=== PATIENT | female | born 1950 | race Caucasian/White ===

== ENCOUNTER → 2018-05-08 08:15 | Outpatient (CLI) | payer OTHER, SELFPAY ==
--- NOTE | 2018-05-08 08:17 | DI.US.S_ITS ---
PROCEDURE: US ABDOMEN COMPLETE INDICATIONS: Persistant diarrhea and abdominal discomfort TECHNIQUE: Real-time scanning was performed of the abdominal and retroperitoneal organs, with image documentation. COMPARISON: None. FINDINGS: Liver: Liver is normal in size and homogeneous in echotexture. Gallbladder: No findings of gallstones or sludge are seen. The gallbladder wall is not thickened, measuring 3 mm or less. No specific pericholecystic fluid is seen. The sonographic Longoria sign is negative. Biliary ducts: Intrahepatic bile ducts are non-dilated. Extrahepatic bile duct caliber measures 6 mm. Normal is 6-7 mm or less in diameter, or 10 mm or less post-cholecystectomy. Pancreas: Visualized portions of the pancreas are sonographically normal. Spleen: Spleen is normal in size and homogeneous in echotexture. Kidneys: Kidneys are normal in size and echotexture. Right kidney measures 9.5 cm long; left kidney measures 9.8 cm long. No hydronephrosis or nephrolithiasis. No solid masses. At the inferior pole of the right kidney, there is a 3.3 cm simple appearing cyst. The renal cortex measures within normal limits for thickness. Aorta: Visualized aorta is normal in caliber at less than 3 cm. Iliacs: Proximal common iliac arteries are normal in caliber at less than 2.5 cm. IVC: Intrahepatic inferior vena cava is patent. Miscellaneous: No free abdominal fluid. IMPRESSION: No significant abnormality is seen. The gallbladder demonstrates a normal sonographic appearance. No biliary dilatation is seen. 3.3 cm simple appearing right renal cyst incidentally noted. Dictated by: Suhail Gonzalez M.D. on 05/08/2018 at 8:58 Approved by: Suhail Gonzalez M.D. on 05/08/2018 at 8:59
[2018-05-08 08:29] LABS: RBC Urine None Seen (0-5/HPF)
[2018-05-08 09:40] LABS: Add Manual Diff / Slide Review NO; Basophils Percent Auto 2.1 % (0-2); Hematocrit 37.5 % (36-46); Hemoglobin 12.7 g/dL (12.0-16.0); Lymphocytes Percent Auto 31.8 % (25-40); Mean Corpuscular HGB Conc 33.9 % (30-36); Mean Corpuscular Hemoglobin 30.3 PG (26-34); Mean Corpuscular Volume 89.6 fL (80-100); Monocytes Percent Auto 7.6 % (3-14); Neutrophils Absolute Auto 2700 /uL (3000-5900); Neutrophils Percent Auto 55.5 % (50-75); Platelet Count 282 X10^3/uL (150-400); Red Blood Cell Count 4.19 X10^6/uL (4.0-5.2); Red Cell Distribution Width 14.7 % (11.6-14.8); White Blood Cell Count 4.9 X10^3/uL (4.5-11.0)
[2018-05-08 09:49] LABS: Bacteria Urine Many (>30); Culture Indicated Urine Specimen Cultured; WBC Urine 5-10/HPF (0-5/HPF)
[2018-05-08 10:17] LABS: Creatinine Urine Random 65.4 mg/dL
[2018-05-08 10:26] LABS: Alanine Aminotransferase 34 IU/L (9-52); Albumin 4.1 g/dL (3.5-5.0); Albumin Globulin Ratio 1.3 (1.0-2.8); Alkaline Phosphatase 66 U/L (38-126); Aspartate Aminotransferase 21 IU/L (14-36); BUN Creatinine Ratio 21.4 (6-22); Bilirubin Total 0.7 mg/dL (0.2-1.3); Blood Urea Nitrogen 15 mg/dL (7-17); Calcium 9.5 mg/dL (8.4-10.2); Carbon Dioxide 28 mmol/L (22-32); Chloride 102 mmol/L (98-107); Cholesterol 313 mg/dL (140-199); Estimated Glomerular Filt Rate > 60.0 mL/min (>60); Globulin 3.2 g/dL (1.7-4.1); Glucose 82 mg/dL (80-110); HDL Cholesterol 52 mg/dL (40-60); HEMOLYSIS < 15 (0-50); LDL Cholesterol Calculated 221 mg/dL (<100); Potassium 4.3 mmol/L (3.4-5.1); Sodium 141 mmol/L (137-145); Total Protein 7.3 g/dL (6.3-8.2); Triglycerides 199 mg/dL (35-150)
[2018-05-08 10:33] LABS: Microalbumi Creatinin Ratio Ur 9.1 ug/mg CR (<30); Microalbumin Urine Random < 0.6 mg/dL (0-1.6)
[2018-05-08 10:46] LABS: Thyroid Stimulating Hormone 1.54 uIU/mL (0.47-4.68)
== END ==
PROVIDERS: PCP Physician Assistant; Visit Provider Physician Assistant
DX: K52.9 Noninfective gastroenteritis and colitis, unspecified (principal); R10.9 Unspecified abdominal pain; N28.1 Cyst of kidney, acquired; E78.5 Hyperlipidemia, unspecified; L50.9 Urticaria, unspecified; Z87.448 Personal history of other diseases of urinary system
CPT/HCPCS: 76700; 80053; 80061; 81015; 82043; 82570; 84443; 85025; 87086; 87186

== ENCOUNTER 2018-05-19 08:23 | Emergency (ER) | payer OTHER, SELFPAY ==
--- NOTE | 2018-05-19 08:26 | ED_ITS ---
HPI - Back Pain/Injury General Chief Complaint: Back Pain/Injury Stated Complaint: SEVERE PAIN IN LOWER BACK ON RIGHT SIDE Time Seen by Provider: 05/19/18 08:25 Source: patient Mode of arrival: ambulatory Limitations: no limitations History of Present Illness HPI Narrative: Otherwise healthy 67-year-old female here for evaluation of right lower back pain. Patient states that she went to bed last night feeling fine. She states that overnight she became uncomfortable with pain in her right lower back that was radiating down her right leg. Has never had anything like this before. She states that this morning she had problems standing and putting pressure on that leg. No urinary symptoms. No bowel symptoms. No fevers. States she does not remember any incident yesterday that could have caused this to happen. She does walk 2-3 miles a day. Does yoga 3 times a week. Related Data Previous Rx's Medication Instructions Recorded desonide 1 ella TOPICAL BID PRN #30 gm 07/15/17 fluocinonide 1 ella TOPICAL BID PRN #30 gm 07/15/17 fexofenadine 180 mg tablet 180 mg PO DAILY #30 tab 04/26/18 ranitidine 150 mg tablet 150 mg PO BID #60 tab 04/26/18 Allergies Allergy/AdvReac Type Severity Reaction Status Date / Time No Known Drug Allergies Allergy Verified 04/26/18 10:58 Review of Systems Constitutional Denies fatigue and Denies fever(s) Cardiovascular Denies chest pain and Denies dyspnea Respiratory Denies dyspnea Gastrointestinal Gastrointestinal: Denies abdominal pain, Denies diarrhea, Denies nausea and Denies vomiting Musculoskeletal Comments: Right lower back pain radiating down her right leg Integumentary/Breasts Denies lesions, Denies rash and Denies wounds Neurologic Comments: Tingling radiating down her right leg Endocrine Denies fatigue Hematologic/Lymphatic Denies easy bleeding and Denies easy bruising [facility] Medical History Essential hypertension (Chronic 07/03/11) Hyperlipidemia (Chronic 07/03/11) Lichen sclerosus et atrophicus (Chronic 12/23/15) Former smoker (Chronic 07/03/11) Tubular adenoma of colon (Resolved 07/18/17) Surgical History History of bilateral salpingo-oophorectomy (BSO) History of tonsillectomy Status post appendectomy Status post breast lumpectomy Family History Father Alcoholic Smoker Mother Alcoholic Osteoporosis CVA (cerebral vascular accident), Onset Age: 40 Social History Smoking Status: Never smoker Exam Initial Vital Signs Initial Vital Signs: Vital Signs Temperature 97.4 F L 05/19/18 08:27 Pulse Rate 83 05/19/18 08:27 Respiratory Rate 20 05/19/18 08:27 Blood Pressure 174/76 H 05/19/18 08:27 Pulse Oximetry 99 05/19/18 08:27 Const General: cooperative, healthy appearing and comfortable Nutritional Appearance: average body habitus Orientation: alert, awake and oriented x3 HENMT Head: normal to inspection and normocephalic GI Inspection: non-distended Palpation: soft, No firm and No guarding Back/Spine/Pelvis Other: Some mild tenderness to palpation over the PSIS and over the SI joint. Skin Lesions: no lesions Rashes: no rashes Neuro Other: Sensation intact to light touch right lower extremity Extrem Other: Full range of motion bilateral lower extremities Course Vital Signs - 8 hr 05/19/18 08:27 Temperature 97.4 F L Pulse Rate 83 Respiratory Rate 20 Blood Pressure 174/76 H Pulse Oximetry 99 MDM - Back Pain/Injury MDM Narrative Medical decision making narrative: Patient states she feels much better and is almost asymptomatic during my examination. She has no red flag symptoms concerning for cauda equina or fractures. Will hold on radiologic studies for now. No signs of skin infections. I suspect that her symptoms last night were musculoskeletal in more specifically muscular since she is almost asymptomatic now. We did discuss the use of nonsteroidal anti-inflammatories. She was given return precautions. She expressed understanding and agreement with plan. Discharge Plan Departure Patient Disposition: Home, Self-Care Clinical Impression: Strain of lumbar region Instructions: Activity May Be Better then Rest for Low Back Pain Recovery Activity Restrictions/Additional Instructions: Recommend that you do the light stretching and staying active like we discussed. Return to the emergency department for any new symptoms, worsening symptoms, fevers, problems with bowel or urination or any other concerning symptoms. Prescriptions: No Action fexofenadine [Ibis Allergy] 180 mg tablet 180 mg PO DAILY Qty: 30 RF: 0 ranitidine HCl [Zantac] 150 mg tablet 150 mg PO BID Qty: 60 RF: 3 fluocinonide 0.05 % ointment 1 ella Topical BID PRNQty: 30 RF: 1 desonide 0.05 % ointment 1 ella Topical BID PRNQty: 30 RF: 1
[2018-05-19 08:27] VITALS: BP 174/76; PULSE 83; RESP 20; TEMP 36.3; O2SAT 99; BMI 32.4
== END 2018-05-19 09:00 | disposition home or self-care (01) ==
PROVIDERS: Emergency Provider Emergency Medicine; PCP Physician Assistant
DX: M62.830 Muscle spasm of back (principal)
CPT/HCPCS: 99282

== ENCOUNTER → 2018-08-14 09:41 | Outpatient (CLI) | payer OTHER, SELFPAY ==
[2018-08-14 09:47] LABS: Bacteria Urine None Seen; WBC Urine None Seen (0-5/HPF)
[2018-08-14 10:01] LABS: Appearance Urine UA CLEAR; Bilirubin Urine UA NEGATIVE (NEGATIVE); Color Urine UA YELLOW; Glucose Urine UA NEGATIVE (Normal); Ketones Urine UA NEGATIVE (NEGATIVE); Leukocyte Esterase Urine UA NEGATIVE (NEGATIVE); Nitrite Urine UA Negative (Negative); Occult Blood Urine UA NEGATIVE (Negative); Protein Urine UA NEGATIVE (Negative); Urobilinogen Urine UA 0.2 E.U./dL (0.2)
[2018-08-14 10:09] LABS: Culture Indicated Urine Cult Not Indicated; RBC Urine 1-5/HPF (0-5/HPF); Squamous Epithelial Cell Urine 5-10 /HPF
== END ==
PROVIDERS: PCP Physician Assistant; Visit Provider Physician Assistant
DX: R32 Unspecified urinary incontinence (principal)
CPT/HCPCS: 81001

== ENCOUNTER → 2019-06-10 08:28 | Outpatient (CLI) | payer OTHER, SELFPAY | PROVIDERS: PCP Physician Assistant; Visit Provider Physician Assistant | DX: H60.91 Unspecified otitis externa, right ear (principal) | CPT/HCPCS: 87070; 87077; 87147; 87186; 87205 ==

== ENCOUNTER → 2019-08-08 09:34 | Outpatient (CLI) | payer OTHER, SELFPAY ==
[2019-08-08 11:00] LABS: HDL Cholesterol 52 mg/dL (40-60); Triglycerides 243 mg/dL (35-150)
[2019-08-08 11:09] LABS: Cholesterol 331 mg/dL (140-199); LDL Cholesterol Calculated 230 mg/dL (<100)
[2019-08-08 11:37] LABS: Alanine Aminotransferase 27 IU/L (9-52); Albumin 4.3 g/dL (3.5-5.0); Albumin Globulin Ratio 1.4 (1.0-2.8); Alkaline Phosphatase 77 U/L (38-126); Aspartate Aminotransferase 26 IU/L (14-36); BUN Creatinine Ratio 21.4 (6-22); Blood Urea Nitrogen 15 mg/dL (7-17); Calcium 9.7 mg/dL (8.4-10.2); Carbon Dioxide 29 mmol/L (22-32); Chloride 101 mmol/L (98-107); Estimated Glomerular Filt Rate > 60.0 mL/min (>60); Globulin 3.1 g/dL (1.7-4.1); Glucose 91 mg/dL (80-110); HEMOLYSIS < 15 (0-50); Potassium 4.4 mmol/L (3.4-5.1); Sodium 140 mmol/L (137-145); Total Protein 7.4 g/dL (6.3-8.2)
== END ==
PROVIDERS: Hospitalist; PCP Physician Assistant; Visit Provider Physician Assistant
DX: E78.5 Hyperlipidemia, unspecified (principal); R19.7 Diarrhea, unspecified
CPT/HCPCS: 36415; 80053; 80061

== ENCOUNTER → 2019-08-11 07:40 | Outpatient (CLI) | payer OTHER, SELFPAY ==
[2019-08-11 11:07] LABS: Clostridium Difficile Tox PCR Negative for C. diff
== END ==
PROVIDERS: PCP Physician Assistant; Visit Provider Hospitalist
DX: R19.7 Diarrhea, unspecified (principal)
CPT/HCPCS: 87045; 87493; 87899

== ENCOUNTER → 2019-09-15 11:19 | Outpatient (CLI) | payer OTHER, SELFPAY ==
[2019-09-15 12:17] LABS: Add Manual Diff / Slide Review NO; Basophils Absolute Auto 100 /uL (0-100); Basophils Percent Auto 0.8 % (0-2); Eosinophils Absolute Auto 300 /uL (0-450); Eosinophils Percent Auto 3.5 % (2-4); Hemoglobin 13.8 g/dL (12.0-16.0); Lymphocytes Absolute Auto 1400 /uL (1100-4500); Lymphocytes Percent Auto 18.7 % (25-40); Mean Corpuscular HGB Conc 33.6 % (30-36); Mean Corpuscular Hemoglobin 30.3 PG (26-34); Mean Corpuscular Volume 90.3 fL (80-100); Monocytes Absolute Auto 500 /uL (0-900); Monocytes Percent Auto 6.8 % (3-14); Neutrophils Absolute Auto 5400 /uL (1500-7000); Neutrophils Percent Auto 70.2 % (50-75); Platelet Count 325 X10^3/uL (150-400); Red Blood Cell Count 4.55 X10^6/uL (4.0-5.2); Red Cell Distribution Width 13.2 % (11.6-14.8); White Blood Cell Count 7.7 X10^3/uL (4.5-11.0)
== END ==
PROVIDERS: PCP Physician Assistant; Visit Provider Physician Assistant
DX: R19.7 Diarrhea, unspecified (principal)
CPT/HCPCS: 36415; 85025

== ENCOUNTER → 2019-12-15 08:42 | Outpatient (CLI) | payer OTHER, SELFPAY ==
[2019-12-15 09:42] LABS: HDL Cholesterol 45 mg/dL (40-60); Triglycerides 245 mg/dL (35-150)
[2019-12-15 09:50] LABS: Cholesterol 330 mg/dL (140-199); LDL Cholesterol Calculated 236 mg/dL (<100)
== END ==
PROVIDERS: PCP Physician Assistant; Visit Provider Physician Assistant
DX: E78.5 Hyperlipidemia, unspecified (principal)
CPT/HCPCS: 36415; 80061

== ENCOUNTER → 2019-12-24 11:39 | Outpatient (CLI) | payer OTHER, SELFPAY ==
--- NOTE | 2019-12-24 11:40 | DI.MG.S_ITS ---
BILATERAL DIGITAL SCREENING MAMMOGRAM 3D/2D WITH CAD: 12/24/2019 CLINICAL: Routine screening. Comparison is made to exams dated: 03/17/2014 mammogram and 11/07/2010 mammogram - [facility]. There are scattered fibroglandular elements in both breasts. Current study was also evaluated with a Computer Aided Detection (CAD) system. No significant masses, calcifications, or other findings are seen in either breast. There has been no significant interval change. IMPRESSION: NEGATIVE There is no mammographic evidence of malignancy. A 1 year screening mammogram is recommended. This exam was interpreted at Station ID: [id number]. NOTE: For mammograms, a report in lay terms will be sent to the patient. Approximately 15% of breast malignancies will not be visualized mammographically. In the management of a palpable breast mass, a negative mammogram must not discourage biopsy of a clinically suspicious lesion. Electronically Signed By: Tracy rodriguez/ian:12/24/2019 19:28:07 letter sent: Normal Exam ACR BI-RADS Category 1: Negative [id number]
== END ==
PROVIDERS: PCP Physician Assistant; Visit Provider Physician Assistant
DX: Z12.31 Encounter for screening mammogram for malignant neoplasm of breast (principal)
CPT/HCPCS: 77063; 77067

== ENCOUNTER → 2020-07-01 09:42 | Outpatient (CLI) | payer OTHER, SELFPAY ==
--- NOTE | 2020-07-01 | DI.US.S_ITS ---
PROCEDURE: US PELVIC COMPLETE INDICATIONS: PAIN TECHNIQUE: Real-time scanning was performed of the pelvic organs, with image documentation. Additional endovaginal scanning was necessary due to incomplete visualization of the adnexal and endometrial structures by transabdominal scanning. COMPARISON: None. FINDINGS: Transabdominal scanning: Limited scanning through the kidneys shows no hydronephrosis. No pathologic free abdominal or pelvic fluid. There is a small amount of myometrial calcification at the fundus, likely a small calcified fibroid. Endovaginal scanning: Uterus: Uterus is normal in size at 2.1 x 3.9 x 4.4 cm, anteverted. The endometrium measures 2.5 mm in combined thickness. Ovaries: The right ovary could not be seen, the left ovary is surgically absent. Note is made of approximately 291 cc bladder volume and the patient reported inability to void. IMPRESSION: No sign of endometrial mass, small amount of uterine fundal calcification within the myometrium, likely a dystrophic uterine small fibroid. Absent left ovary, nonvisualized right ovary due to bowel gas. Bladder volume is approximately 291 cc, and the patient reports inability to void. Please correlate clinically. Dictated by: Angel Street M.D. on 07/01/2020 at 11:13 Approved by: Angel Street M.D. on 07/01/2020 at 11:16
--- NOTE | 2020-07-01 | DI.US.S_ITS ---
PROCEDURE: US ABDOMEN COMPLETE INDICATIONS: Pelvic and perineal pain,Abdominal distension (gas TECHNIQUE: Real-time scanning was performed of the abdominal and retroperitoneal organs, with image documentation. COMPARISON: [facility], US, US ABDOMEN COMPLETE, 05/08/2018, 9:09. FINDINGS: Liver: Liver is normal in size and homogeneous in echotexture. Gallbladder: The gallbladder appears normal Biliary ducts: Intrahepatic bile ducts are non-dilated. Extrahepatic bile duct caliber measures 5.4 mm. Normal is 6-7 mm or less in diameter, or 10 mm or less post-cholecystectomy. Pancreas: Visualized portions of the pancreas are sonographically normal. Spleen: Spleen is normal in size and homogeneous in echotexture. Kidneys: Kidneys are normal in size and echotexture. Right kidney measures 11.0 cm long; left kidney measures 11.3 cm long. No hydronephrosis or nephrolithiasis. No solid masses. There is a right lower pole simple renal cortical cyst measuring up to 3.9 cm. Aorta: Visualized aorta is normal in caliber at less than 3 cm. Iliacs: Proximal common iliac arteries are normal in caliber at less than 2.5 cm. IVC: Intrahepatic inferior vena cava is patent. Miscellaneous: No free abdominal fluid. IMPRESSION: No acute disease. Incidental note is made of a 3.9 cm right renal cortical cyst. No hydronephrosis or nephrolithiasis is associated. No ascites found. Dictated by: Angel Street M.D. on 07/01/2020 at 11:30 Approved by: Angel Street M.D. on 07/01/2020 at 11:32
== END ==
PROVIDERS: PCP Physician Assistant; Referring Provider Physician Assistant; Visit Provider Physician Assistant
DX: R10.2 Pelvic and perineal pain (principal); R14.0 Abdominal distension (gaseous); N28.1 Cyst of kidney, acquired
CPT/HCPCS: 76700; 76830; 76856

== ENCOUNTER → 2020-07-14 10:14 | Outpatient (CLI) | payer OTHER, SELFPAY | PROVIDERS: PCP Physician Assistant; Referring Provider Surgery; Visit Provider Surgery | DX: Z86.010 Personal history of colon polyps (principal); K52.9 Noninfective gastroenteritis and colitis, unspecified | CPT/HCPCS: 87507 ==

== ENCOUNTER → 2020-10-11 10:41 | Outpatient (CLI) | payer OTHER, SELFPAY ==
[2020-10-11 13:22] LABS: COVID19 -Nasal RAPID Negative (Negative)
== END ==
PROVIDERS: PCP Physician Assistant; Visit Provider Surgery
DX: Z11.59 Encounter for screening for other viral diseases (principal)
CPT/HCPCS: 87635; C9803

== ENCOUNTER 2020-10-12 12:41 | Day surgery (SDC) | payer OTHER, SELFPAY ==
[2020-10-12] VITALS (7 sets, daily range): BP systolic 129–181; BP diastolic 75–99; PULSE 71–91; RESP 13–16; TEMP 36.2–36.8; O2SAT 95–97; BMI 29.2
--- NOTE | 2020-10-12 | PATH_ITS ---
[facility] Accession Number: [id number] . 01 Material submitted: . colon - RANDOM COLON BIOPSIES . 02 Diagnosis: Random Colon, Biopsies: Collagenous colitis. Negative for granulomas, dysplasia and malignancy. MRV 10/14/2020 1522 Local . 02 Electronically signed: . Rebekah Biggs MD, Pathologist NPI- [id number] . 01 Gross description: . RANDOM COLON BIOPSIES: Received in formalin are multiple fragment(s) of clayton, soft tissue measuring 1.0 x 0.5 x 0.2 cm in aggregate submitted entirely in 1 cassette(s) /QBJ 10/13/2020 0853 Local . 02 Pathologist provided ICD-10: K52.89 . 02 CPT . 360611 Performed at: 01 [facility] [address] [id number] MD Asher Ahumada MD Phone: [phone] Performed at: 02 [facility] [address] [place], [place] [id number] MD Rebekah Biggs MD Phone: [phone]
[2020-10-12] MEDS: SODIUM CHLORIDE 0.9% 1,000 ML 200 ML IV (13:07)
--- NOTE | 2020-10-12 13:33 | P.HP_ITS ---
History of Present Illness History of Present Illness Date Patient Seen: 10/12/20 Time Patient Seen: 13:33 Chief complaint: [facility] [place] Narrative: This is a 69-year-old woman who is here for colonoscopy due to ongoing diarrhea. To review, the patient reported that her diarrhea began after she had been making some homemade Kombucha in drinking and. She saw her primary doctor initially, and was sent for ?stool studies. On review of her chart a C diff and stool culture were sent in July 2019. I do not see any other stool studies. Saw a knockdown worker at [facility], who recommended a colonoscopy. She says she did not want have a colonoscopy at [facility], and she asked to be referred to [facility]. She says that her diet consists of minimal meet, mostly vegetables, some dairy, some processed food, although this makes her stomach upset she says. She says her diarrhea is daily, and does not include any blood but does include some mucus in the stool. She said she had a bout a 1 month interval where the diarrhea almost completely stopped because she was drinking celery choose every day. She stopped drinking celery juice because she does not like it, and the diarrhea came back. She says she had a colonoscopy about 2 years ago, and another 1 about 2 years before that (looks like the dates were 2016 and 2013). Both times she had a polyp removed from the descending colon. The notes say she is due for repeat colonoscopy 3-5 years from her last 1 which was in 2017. ROS: Diarrhea, reflux symptoms. Thirteen system review is otherwise negative other than as mentioned below and in HPI. PE: GENERAL: Well groomed and cooperative. Appears stated age. Answers questions promptly and appropriately. Vital signs noted. HENT: Normocephalic, atraumatic. Hearing intact. EYES: Conjunctiva pink, sclera white, no periorbital swelling. CARDIOVASCULAR: Regular rate. No pedal edema. RESPIRATORY: Non-tachypneic, breathing comfortably on room air. GASTROINTESTINAL: Abdomen soft and non-distended; rounded, nontender. GENITALURINARY: No flank tenderness. MUSCULOSKELETAL: Equal tone and mass bilaterally. SKIN: Warm, dry, soft, appropriate color for ethnicity. No other lesions, rashes, or wounds. NEURO: Alert and Oriented X 3. No gross sensory deficits, or cognitive issues. PSYCH: Appropriate affect and mood. Patient History Medical History (Updated 10/12/20 @ 13:35 by Rasheeda Tsai MD) Eczema Essential hypertension (07/03/11) Former smoker (07/03/11) Hyperlipidemia (07/03/11) Lichen sclerosus et atrophicus (12/23/15) Osteopenia Spinal stenosis Tubular adenoma of colon (07/18/17) Surgical History History of bilateral salpingo-oophorectomy (BSO) (1967) History of tonsillectomy Hx of colonoscopy with polypectomy (04/2014) Hx of discectomy (03/2017) Status post appendectomy Status post breast lumpectomy (1989) Family & Social History Family History Father Alcoholic Smoker Heart disease Cancer Mother Alcoholic Osteoporosis CVA (cerebral vascular accident) Heart disease Social History: household members none Tobacco & Substance use: Smoking Status Former smoker alcohol intake never alcohol intake frequency a few times a week Substance Use Type does not use Meds Home Medications and Allergies Home Medications Medication Instructions Recorded Confirmed Type desonide 0.05 % topical ointment 1 applictn TOPICAL DAILY #30 gram 12/11/19 10/12/20 Rx Allergies Allergy/AdvReac Type Severity Reaction Status Date / Time No Known Drug Allergies Allergy Verified 07/13/20 10:42 Exam Vital Signs (past 8 hours): - 10/12/20 12:54 Temperature 98 F Pulse Rate 91 H Respiratory Rate 16 Blood Pressure 181/99 H Pulse Oximetry 96 Oxygen Delivery Method Room Air Assessment & Plan Assessment and plan (1) Personal history of colonic polyps: Status: Acute (2) Chronic diarrhea: Status: Acute (3) Change in bowel habits: Status: Acute Assessment & Plan narrative: Risks and benefits of screening colonoscopy and possible polypectomy were discussed with the patient including risk of bleeding, perforation, need for additional procedures, risks of anesthesia. The patient desires to proceed with the colonoscopy procedure. COVID-19 COVID-19 status: Negative Result date/Date tested (Pos, Neg/Pending): 10/11/20 Time Spent With Patient Time with patient: 15-24 minutes Quality VTE Deep Vein Thrombosis/Pulmonary Embolism Present on Admission: No
--- NOTE | 2020-10-12 13:53 | P.HP_ITS ---
History of Present Illness History of Present Illness Chief complaint: [facility] [place] Narrative: This is a 69-year-old woman who is here for colonoscopy due to ongoing diarrhea. To review, the patient reported that her diarrhea began after she had been making some homemade Kombucha in drinking and. She saw her primary doctor initially, and was sent for ?stool studies. On review of her chart a C diff and stool culture were sent in July 2019. I do not see any other stool studies. Saw a occ ther at [facility], who recommended a colonoscopy. She says she did not want have a colonoscopy at [facility], and she asked to be referred to [facility]. She says that her diet consists of minimal meet, mostly vegetables, some dairy, some processed food, although this makes her stomach upset she says. She says her diarrhea is daily, and does not include any blood but does include some mucus in the stool. She said she had a bout a 1 month interval where the diarrhea almost completely stopped because she was drinking celery choose every day. She stopped drinking celery juice because she does not like it, and the diarrhea came back. She says she had a colonoscopy about 2 years ago, and another 1 about 2 years before that (looks like the dates were 2016 and 2013). Both times she had a polyp removed from the descending colon. The notes say she is due for repeat colonoscopy 3-5 years from her last 1 which was in 2017. ROS: Diarrhea, reflux symptoms. Thirteen system review is otherwise negative other than as mentioned below and in HPI. PE: GENERAL: Well groomed and cooperative. Appears stated age. Answers questions promptly and appropriately. Vital signs noted. HENT: Normocephalic, atraumatic. Hearing intact. EYES: Conjunctiva pink, sclera white, no periorbital swelling. CARDIOVASCULAR: Regular rate. No pedal edema. RESPIRATORY: Non-tachypneic, breathing comfortably on room air. GASTROINTESTINAL: Abdomen soft and non-distended; rounded, nontender. GENITALURINARY: No flank tenderness. MUSCULOSKELETAL: Equal tone and mass bilaterally. SKIN: Warm, dry, soft, appropriate color for ethnicity. No other lesions, rashes, or wounds. NEURO: Alert and Oriented X 3. No gross sensory deficits, or cognitive issues. PSYCH: Appropriate affect and mood. Patient History Medical History Eczema Essential hypertension (07/03/11) Former smoker (07/03/11) Hyperlipidemia (07/03/11) Lichen sclerosus et atrophicus (12/23/15) Osteopenia Spinal stenosis Tubular adenoma of colon (07/18/17) Surgical History History of bilateral salpingo-oophorectomy (BSO) (1967) History of tonsillectomy Hx of colonoscopy with polypectomy (04/2014) Hx of discectomy (03/2017) Status post appendectomy Status post breast lumpectomy (1989) Family & Social History Family History Father Alcoholic Smoker Heart disease Cancer Mother Alcoholic Osteoporosis CVA (cerebral vascular accident) Heart disease Social History: household members none Tobacco & Substance use: Smoking Status Former smoker alcohol intake never alcohol intake frequency a few times a week Substance Use Type does not use Meds Home Medications and Allergies Home Medications Medication Instructions Recorded Confirmed Type desonide 0.05 % topical ointment 1 applictn TOPICAL DAILY #30 gram 12/11/19 10/12/20 Rx Allergies Allergy/AdvReac Type Severity Reaction Status Date / Time No Known Drug Allergies Allergy Verified 07/13/20 10:42 Exam Vital Signs (past 8 hours): - 10/12/20 12:54 Temperature 98 F Pulse Rate 91 H Respiratory Rate 16 Blood Pressure 181/99 H Pulse Oximetry 96 Oxygen Delivery Method Room Air Assessment & Plan COVID-19 COVID-19 status: Negative Result date/Date tested (Pos, Neg/Pending): 10/11/20 Time Spent With Patient Time with patient: 15-24 minutes Quality VTE Deep Vein Thrombosis/Pulmonary Embolism Present on Admission: No
--- NOTE | 2020-10-12 14:02 | P.OP.ENDO_ITS ---
Operative Date/Time/Diagnoses Date of procedure: 10/12/20 Time of procedure: 14:02 Pre-op diagnosis: Chronic diarrhea Procedure & Clinicians Study performed: Colonoscopy Procedural sedation performed by the endoscopist Random biopsies throughout the colon to rule out microscopic colitis Same procedure as scheduled: Yes Indications: 69-year-old woman with change in bowel habits Surgeon: Rasheeda Tsai Procedure Notes SCOAP/Timeout: Performed Procedure in detail: The patient was brought to the room and placed in left lateral decubitus position with all bony prominences padded. A time-out was performed and then the patient was given procedural sedation starting with mg of Versed and [10 mcg of fentanyl. Vitals were monitored throughout the procedure and remained stable. Once adequately sedated, the procedure was begun. A rectal exam was performed revealing [no abnormalitie. The colonoscope was then introduced to the rectum and advanced to the cecum in the usual fashion. [The cecum was identified by the appendiceal orifice, the mucosal tri- fold, and the ileocecal valve. The scope was then retracted while rotating side to side and examining each mucosal fold. No visible abnormalities were seen of the rectal or colonic mucosa. Random biopsies were taken throughout the ascending, transverse, descending, and sigmoid colon and the rectum. At the conclusion of the procedure retroflexion was performed and [small grade 1-2 in ternal hemorrhoids without stigmata of bleeding were seen. The scope was then withdrawn from the rectum the procedure was concluded. The patient tolerated the procedure well and was transferred to the PACU in stable condition. Scope withdrawal time: 10 Sedation minutes: 22 Impression: Normal appearing colon Post-procedure Recommendations: Colonscopy in 5 years (For personal history of colon polyps) and Other recommendation (Will contact patient with biopsy results) Follow up: as needed Disposition: PACU
[2020-10-12] MEDS: MIDAZOLAM 5 MG/5 ML VIAL IV (14:06)
[2020-10-12] MEDS: fentaNYL 250 MCG/5 ML INJ IV (14:06)
--- NOTE | 2020-10-12 14:50 | SUR.PHASEI ---
awake and comfortable, instructions reviewed, pt drinking coffee. Denies light headedness
--- NOTE | 2020-10-12 15:19 | SUR.PHASEII ---
Stable phase 2, pt left when ready and left in stable condition.
== END 2020-10-12 15:10 | disposition home or self-care (01) ==
PROVIDERS: PCP Physician Assistant; Referring Provider Physician Assistant; Visit Provider Surgery
PROC: 0DJD8ZZ Inspection of Lower Intestinal Tract, Via Natural or Artificial Opening Endoscopic (ICD-10-PCS; CPT 45378; principal; 2020-10-12 13:45)
DX: K52.831 Collagenous colitis (principal); K64.0 First degree hemorrhoids; I10 Essential (primary) hypertension; E78.5 Hyperlipidemia, unspecified; Z87.891 Personal history of nicotine dependence
CPT/HCPCS: 45380; 99152; J2250; J3010

== ENCOUNTER → 2021-03-08 09:52 | Outpatient (CLI) | payer OTHER, SELFPAY ==
[2021-03-08 11:15] LABS: Add Manual Diff / Slide Review NO; Basophils Absolute Auto 100 /uL (0-100); Basophils Percent Auto 1.4 % (0-2); Eosinophils Absolute Auto 100 /uL (0-450); Eosinophils Percent Auto 2.6 % (2-4); Hematocrit 40.5 % (36-46); Hemoglobin 13.9 g/dL (12.0-16.0); Lymphocytes Absolute Auto 1400 /uL (1100-4500); Lymphocytes Percent Auto 25.6 % (25-40); Mean Corpuscular HGB Conc 34.3 % (30-36); Mean Corpuscular Hemoglobin 31.6 PG (26-34); Mean Corpuscular Volume 92.1 fL (80-100); Monocytes Absolute Auto 400 /uL (0-900); Monocytes Percent Auto 6.6 % (3-14); Neutrophils Absolute Auto 3500 /uL (1500-7000); Neutrophils Percent Auto 63.8 % (50-75); Platelet Count 295 X10^3/uL (150-400); Red Cell Distribution Width 14.8 % (11.6-14.8); White Blood Cell Count 5.5 X10^3/uL (4.5-11.0)
[2021-03-08 11:50] LABS: HEMOLYSIS < 15 (0-50); Iron 55 ug/dL (37-170)
[2021-03-08 11:52] LABS: Alanine Aminotransferase 17 IU/L (<35); Albumin 4.3 g/dL (3.5-5.0); Albumin Globulin Ratio 1.3 (1.0-2.8); Alkaline Phosphatase 51 U/L (38-126); Aspartate Aminotransferase 15 IU/L (14-36); Bilirubin Total 0.4 mg/dL (0.2-1.3); Blood Urea Nitrogen 17 mg/dL (7-17); Calcium 10.6 mg/dL (8.4-10.2); Carbon Dioxide 28 mmol/L (22-32); Chloride 104 mmol/L (98-107); Estimated Glomerular Filt Rate > 60.0 mL/min (>60); Globulin 3.3 g/dL (1.7-4.1); Glucose 93 mg/dL (80-110); HEMOLYSIS < 15 (0-50); Potassium 4.6 mmol/L (3.4-5.1); Sodium 139 mmol/L (137-145); Total Protein 7.6 g/dL (6.3-8.2)
[2021-03-08 12:02] LABS: Percent Iron Saturation 24 % (15-50); Total Iron Binding Capacity 231 ug/dL (265-497); Transferrin 212 mg/dL (206-381)
[2021-03-08 12:27] LABS: Ferritin 44 ng/mL (11-264)
[2021-03-08 12:42] LABS: Vitamin B12 473 pg/mL (239-931)
[2021-03-08 16:07] LABS: Creatinine Urine Random 71.6 mg/dL
[2021-03-08 16:13] LABS: Microalbumin Urine Random < 0.6 mg/dL (0-1.6)
[2021-03-08 16:23] LABS: Vitamin D 25 Hydroxy (D3) 55.8 ng/mL (30.0-100.0)
[2021-03-09 05:31] LABS: Cholesterol HDL Ratio 5.6 ratio (0.0-4.4); Cholesterol,Total 379 mg/dL (100-199); HDL Cholesterol 68 mg/dL (>39); LDL Cholesterol Cal 288 mg/dL (0-99); Triglycerides 129 mg/dL (0-149); VLDL Cholesterol Cal 23 mg/dL (5-40)
== END ==
PROVIDERS: PCP Physician Assistant; Referring Provider Physician Assistant; Visit Provider Physician Assistant
DX: E11.9 Type 2 diabetes mellitus without complications (principal); Z13.0 Encounter for screening for diseases of the blood and blood-forming organs and certain disorders involving the immune mechanism; R03.0 Elevated blood-pressure reading, without diagnosis of hypertension; E78.5 Hyperlipidemia, unspecified; K52.9 Noninfective gastroenteritis and colitis, unspecified; E63.9 Nutritional deficiency, unspecified; E78.2 Mixed hyperlipidemia; E11.8 Type 2 diabetes mellitus with unspecified complications; I10 Essential (primary) hypertension
CPT/HCPCS: 36415; 80053; 80061; 82043; 82306; 82570; 82607; 82728; 83540; 83550; 85025

== ENCOUNTER → 2021-05-13 14:43 | Outpatient (CLI) | payer OTHER, SELFPAY ==
[2021-05-13 15:44] LABS: Influenza A - CEPHEID Flu A NEGATIVE (NEGATIVE); Influenza B - CEPHEID Flu B NEGATIVE (NEGATIVE)
[2021-05-13 15:59] LABS: COVID19 -Nasal RAPID Negative (Negative)
== END ==
PROVIDERS: PCP Physician Assistant; Visit Provider Physician Assistant
DX: R11.0 Nausea (principal); R50.9 Fever, unspecified; R52 Pain, unspecified
CPT/HCPCS: 87502; 87635; 93010

== ENCOUNTER 2021-05-13 15:43 | Emergency (ER) | payer OTHER, SELFPAY ==
[2021-05-13] VITALS (14 sets, daily range): BP systolic 132–162; BP diastolic 65–78; PULSE 85–96; RESP 18–32; TEMP 37.6; O2SAT 96–99; BMI 25.7
--- NOTE | 2021-05-13 15:45 | DI.RAD.S_ITS ---
PROCEDURE: XR CHEST 1V INDICATIONS: suspected sepsis TECHNIQUE: One view of the chest was acquired. COMPARISON: None. FINDINGS: Surgical changes and devices: Fusion hardware in mid to lower cervical spine is seen. Lungs and pleura: Lungs are clear. No pleural effusions or pneumothorax. Mediastinum: Mediastinal contours appear normal. Heart size is normal. Bones and chest wall: No suspicious bony lesions. Overlying soft tissues appear unremarkable. IMPRESSION: No acute cardiopulmonary pathology. Dictated by: Rl Law M.D. on 05/13/2021 at 16:28 Approved by: Rl Law M.D. on 05/13/2021 at 16:28
[2021-05-13 16:13] LABS: Add Manual Diff / Slide Review NO; Basophils Absolute Auto 100 /uL (0-100); Basophils Percent Auto 0.8 % (0-2); Eosinophils Absolute Auto 0 /uL (0-450); Eosinophils Percent Auto 0.3 % (2-4); Hematocrit 35.7 % (36-46); Hemoglobin 11.9 g/dL (12.0-16.0); Lymphocytes Absolute Auto 1100 /uL (1100-4500); Lymphocytes Percent Auto 12.3 % (25-40); Mean Corpuscular HGB Conc 33.2 % (30-36); Mean Corpuscular Hemoglobin 30.4 PG (26-34); Mean Corpuscular Volume 91.4 fL (80-100); Monocytes Absolute Auto 1100 /uL (0-900); Monocytes Percent Auto 12.4 % (3-14); Neutrophils Absolute Auto 6900 /uL (1500-7000); Neutrophils Percent Auto 74.2 % (50-75); Platelet Count 195 X10^3/uL (150-400); Red Cell Distribution Width 13.9 % (11.6-14.8); White Blood Cell Count 9.3 X10^3/uL (4.5-11.0)
[2021-05-13] MEDS: SODIUM CHLORIDE 0.9% 1,000 ML 1000 ML IV (16:14)
[2021-05-13 16:24] LABS: Alanine Aminotransferase 60 IU/L (<35); Albumin 3.6 g/dL (3.5-5.0); Albumin Globulin Ratio 0.9 (1.0-2.8); Alkaline Phosphatase 152 U/L (38-126); Aspartate Aminotransferase 63 IU/L (14-36); BUN Creatinine Ratio 22.1 (6-22); Bilirubin Total 0.7 mg/dL (0.2-1.3); Blood Urea Nitrogen 23 mg/dL (7-17); Calcium 9.5 mg/dL (8.4-10.2); Carbon Dioxide 19 mmol/L (22-32); Chloride 99 mmol/L (98-107); Estimated Glomerular Filt Rate 52.4 mL/min (>60); Globulin 3.8 g/dL (1.7-4.1); Glucose 114 mg/dL (80-110); HEMOLYSIS < 15 (0-50); Lactate (Lactic Acid) 0.8 mmol/L (0.7-2.1); Lipase 73 U/L (23-300); Potassium 3.5 mmol/L (3.4-5.1); Sodium 129 mmol/L (137-145); Total Protein 7.4 g/dL (6.3-8.2)
[2021-05-13 16:41] LABS: Procalcitonin 5.75 ng/mL (<0.5)
--- NOTE | 2021-05-13 17:15 | ED_ITS ---
HPI - General Adult General Chief complaint: Fever Stated complaint: Flu Like Symptoms Time Seen by Provider: 05/13/21 15:49 Source: patient Mode of arrival: Family Vehicle Limitations: no limitations History of Present Illness HPI narrative: 70-year-old woman with history of hypertension and the lichen sclerosis presents with reports of being sick for a week. She describes chills for number of days, significantly decreased appetite, sleeping up to 20 hours a day, hot flashes with body aches and taking Tylenol up to every 3 hours. She notes that her memory and cognition seem to be a bit off. She notes that her chronic low back and hip pain have been bothering her more due to the amount of time she has been spending bed. She complains of urinary symptoms consisting of urgency and an unpleasant odor. She does not note suprapubic or flank pain. She has a mild dry cough, no chest pain, no dyspnea, no tachypnea, nausea, vomiting, diarrhea or other abdominal pain. She describes no rashes and no re cent sick exposures. Related Data Previous Rx's Medication Instructions Recorded desonide 0.05 % topical ointment 1 applictn TOPICAL DAILY #30 gram 12/11/19 Allergies Allergy/AdvReac Type Severity Reaction Status Date / Time No Known Drug Allergies Allergy Verified 05/13/21 14:25 Review of Systems Review of Systems Narrative: Remainder of complete review of systems is otherwise unremarkable except for that included in the HPI. Patient History Medical History Eczema Essential hypertension (07/03/11) Former smoker (07/03/11) Hyperlipidemia (07/03/11) Lichen sclerosus et atrophicus (12/23/15) Osteopenia Spinal stenosis Tubular adenoma of colon (07/18/17) Surgical History History of bilateral salpingo-oophorectomy (BSO) (1967) History of tonsillectomy Hx of colonoscopy with polypectomy (04/2014) Hx of discectomy (03/2017) Status post appendectomy Status post breast lumpectomy (1989) Family History Father Alcoholic Smoker Heart disease Cancer Mother Alcoholic Osteoporosis CVA (cerebral vascular accident) Heart disease Social History marital status: unknown household members: none Smoking Status: Former smoker Tobacco: How many years used: 40 second hand exposure: Yes alcohol intake: never substance use type: does not use Smoking Status: Former smoker tobacco type: cigarettes alcohol intake frequency: a few times a week Substance Use Type: does not use Exam Narrative Exam Narrative: General: mildly ill-appearing slightly flushed but, in no acute distress. Able to give a complete and coherent history. Well-nourished well-developed HEENT: Moist mucous membranes, normal sclera with reactive pupils, Neck: No JVD, supple Respiratory: Lungs are clear to auscultation, no wheezing no rales no rhonchi. Full and symmetrical air movement Cardiac: Regular rate and rhythm no murmurs no bruits Abdomen: Soft, nontender, good bowel tones, no flank pain Skin: Warm and dry, no rashes Neurologic: slight cognitive slowing but overall, Grossly neurologically intact with no obvious asymmetries or abnormalities Extremities: No trauma, well perfused Psych: Cooperative, appropriate insight and affect Initial Vital Signs Initial Vital Signs: Vital Signs Blood Pressure 158/77 H 05/13/21 15:52 Course Orders Ordered: ED Orders 05/13/21 15:45 XR chest 1V Stat EKG-12 Lead Stat RT Consult Eval and Treat Now 05/13/21 15:46 Urinalysis and Microscopic Stat 05/13/21 16:00 Complete Blood Count AUTO DIFF Stat Comprehensive Metabolic Panel Stat Lactate (Lactic Acid) Stat Lipase Stat Procalcitonin Stat 05/13/21 16:15 Blood Culture Stat Discontinued Medications Atenolol (Atenolol 50 Mg Tablet) 50 mg PO NOW ONE Stop: 05/13/21 17:22 Last Admin: 05/13/21 17:28 Dose: Not Given Documented by: Sodium Chloride (Normal Saline 0.9%) 1,000 mls @ 1,000 mls/hr IV BOLUS ONE Stop: 05/13/21 16:44 Last Admin: 05/13/21 16:14 Dose: 1,000 mls/hr Documented by: ATAYLOR Ceftriaxone Sodium 2,000 mg/ (Sodium Chloride) 100 mls @ 200 mls/hr IV NOW ONE Stop: 05/13/21 17:40 Last Admin: 05/13/21 17:52 Dose: 200 mls/hr Documented by: Vital Signs Vital signs: Vital Signs - 8 hr 05/13/21 15:52 05/13/21 16:00 05/13/21 16:01 Temperature 99.7 F H Pulse Rate 92 H 92 H Respiratory Rate 23 24 Blood Pressure 158/77 H 147/70 H 147/70 H Pulse Oximetry 98 97 05/13/21 16:15 05/13/21 16:30 05/13/21 16:45 Temperature Pulse Rate 90 90 88 Respiratory Rate 26 H 23 21 Blood Pressure 138/72 Pulse Oximetry 97 96 96 05/13/21 17:00 05/13/21 17:15 Temperature Pulse Rate 90 88 Respiratory Rate 23 21 Blood Pressure 132/65 Pulse Oximetry 99 97 Medical Decision Making Medical Records Medical records reviewed: Yes I reviewed the patient's medical records. Lab Data Lab results reviewed: Yes I reviewed the patient's lab results. Result diagrams: 05/13/21 16:00 05/13/21 16:00 Labs: Lab Results 05/13/21 05/13/21 05/13/21 Range/Units 16:00 16:00 16:00 WBC 9.3 (4.5-11.0) X10^3/uL RBC 3.90 L (4.0-5.2) X10^6/uL Hgb 11.9 L (12.0-16.0) g/dL Hct 35.7 L (36-46) % MCV 91.4 (80-100) fL MCH 30.4 (26-34) PG MCHC 33.2 (30-36) % RDW 13.9 (11.6-14.8) % Plt Count 195 (150-400) X10^3/uL Neut % (Auto) 74.2 (50-75) % Lymph % (Auto) 12.3 L (25-40) % [place] % (Auto) 12.4 (3-14) % Eos % (Auto) 0.3 L (2-4) % Baso % (Auto) 0.8 (0-2) % Neut # (Auto) 6900 (2553-0152) /uL Lymph # (Auto) 1100 (8967-0802) /uL [place] # (Auto) 1100 H (0-900) /uL Eos # (Auto) 0 (0-450) /uL Baso # (Auto) 100 (0-100) /uL Sodium 129 L (137-145) mmol/L Potassium 3.5 (3.4-5.1) mmol/L Chloride 99 (98-107) mmol/L Carbon Dioxide 19 L (22-32) mmol/L BUN 23 H (7-17) mg/dL Creatinine 1.04 (0.52-1.04) mg/dL Estimated GFR 52.4 L (>60) mL/min BUN/Creatinine Ratio 22.1 H (6-22) Glucose 114 H (80-110) mg/dL Lactate 0.8 (0.7-2.1) mmol/L Calcium 9.5 (8.4-10.2) mg/dL Total Bilirubin 0.7 (0.2-1.3) mg/dL AST 63 H (14-36) IU/L ALT 60 H (<35) IU/L Alkaline Phosphatase 152 H (38-126) U/L Total Protein 7.4 (6.3-8.2) g/dL Albumin 3.6 (3.5-5.0) g/dL Globulin 3.8 (1.7-4.1) g/dL Albumin/Globulin Ratio 0.9 L (1.0-2.8) Lipase 73 (23-300) U/L Procalcitonin 5.75 H (<0.5) ng/mL ECG Data Attestation: I personally reviewed and interpreted this ECG as follows: Interpretation: FINDINGS: Surgical changes and devices: Fusion hardware in mid to lower cervical spine is seen. Lungs and pleura: Lungs are clear. No pleural effusions or pneumothorax. Mediastinum: Mediastinal contours appear normal. Heart size is normal. Bones and chest wall: No suspicious bony lesions. Overlying soft tissues appear unremarkable. IMPRESSION: No acute cardiopulmonary pathology. Dictated by: Rl Law M.D. on 05/13/2021 at 16:28 MDM Narrative Medical decision making narrative: review 70-year-old woman with a week of fevers, chills, general malaise, decreased appetite and a urinary symptoms. She is hyponatremic with a sodium of 129, has no overt signs of sepsis with a normal white blood cell count normal lactic acid. Her chest x-ray is unremarkable. Urinalysis does suggest of bladder infection and she started on ceftriaxone in the emergency department. Because of the severity of her describes symptoms go ing on for a week and not improving as well as hyponatremia admission was recommended. She has declined this and has agreed to sign an Against Medical Advice form and will be going home. We discussed the importance of free water restriction given her low sodium level. also discussed the cognitive changes that we typically see 1 sodium levels are low. She is given ceftriaxone in the emergency department and will be discharged home on cephalexin. She does have a urine culture from 2018 that shows a pansensitive E coli. Encouraged her to return to the emergency department should she have any worsening symptoms Discharge Plan Departure Prescriptions: No Action desonide 0.05 % ointment 1 applictn topical DAILY Qty: 30 RF: 3
[2021-05-13] MEDS: cefTRIAXone 2,000 MG in SODIUM CHLORIDE 0.9% 100 ML 200 ML IV (17:52)
[2021-05-13 18:10] LABS: Appearance Urine UA CLEAR; Bilirubin Urine UA 1+ (NEGATIVE); Color Urine UA YELLOW; Glucose Urine UA NEGATIVE (Negative); Ketones Urine UA TRACE (NEGATIVE); Leukocyte Esterase Urine UA 3+ (NEGATIVE); Nitrite Urine UA POSITIVE (Negative); Occult Blood Urine UA 2+ (Negative); Protein Urine UA TRACE (Negative); Specific Gravity Urine UA <=1.005 (1.000-1.035); Urobilinogen Urine UA 0.2 E.U./dL (0.2)
[2021-05-13 18:32] LABS: RBC Urine 5-10/HPF (0-5/HPF); Renal Epithelial Cells Urine 0-1/HPF (0-1/HPF); Squamous Epithelial Cell Urine 1-5 /HPF (0-5/HPF); Transitional Epi Cells Urine 0-1/HPF (0-5/HPF); WBC Urine 30-100/HPF (0-5/HPF)
[2021-05-13 18:33] LABS: Bacteria Urine Many (>30); Culture Indicated Urine Specimen Cultured
[2021-05-13 18:35] LABS: Ictotest Urine Negative (Negative)
[2021-05-14 07:15] LABS: Enterococcus species Not Detected (Not Detect)
[2021-05-14 07:16] LABS: Acinetobacter baumannii Not Detected (Not Detect); Candida albicans Not Detected (Not Detect); Candida glabrata Not Detected (Not Detect); Candida krusei Not Detected (Not Detect); Candida parapsilosis Not Detected (Not Detect); Candida tropicalis Not Detected (Not Detect); E. coli Detected (Not Detect); Enterobacter cloacae complex Not Detected (Not Detect); Enterobacteriaceae species Detected (Not Detect); Haemophilus influenzae Not Detected (Not Detect); KPC (carbapenem-resist gene) Not Detected (Not Detect); Listeria monocytogenes Not Detected (Not Detect); Neisseria meningitidis Not Detected (Not Detect); Proteus species Not Detected (Not Detect); Pseudomonas aeruginosa Not Detected (Not Detect); Serratia marcescens Not Detected (Not Detect); Staphylococcus species Not Detected (Not Detect); Streptococcus agalactiae (Gr B Not Detected (Not Detect); Streptococcus pneumonia Not Detected (Not Detect); Streptococcus pyogenes (Gr A) Not Detected (Not Detect); Streptococcus species Not Detected (Not Detect)
== END 2021-05-13 19:10 | disposition left against medical advice (07) ==
PROVIDERS: Emergency Provider Emergency Medicine; PCP Physician Assistant
DX: R50.9 Fever, unspecified (principal); R53.83 Other fatigue; E87.1 Hypo-osmolality and hyponatremia; N39.0 Urinary tract infection, site not specified
CPT/HCPCS: 36415; 71045; 80053; 81001; 83605; 83690; 84145; 85025; 87040; 87077; 87086; 87150; 87186; 87205; 93005; 99284; J0696

== ENCOUNTER 2021-05-14 16:21 | Observation (INO) | payer OTHER, SELFPAY ==
[2021-05-14] VITALS (15 sets, daily range): BP systolic 107–150; BP diastolic 59–89; PULSE 77–90; RESP 10–31; TEMP 36.4–37.2; O2SAT 90–100; BMI 25.7; BMI 26.9
--- NOTE | 2021-05-14 16:32 | ED_ITS ---
HPI - General Adult General Chief complaint: Fever Stated complaint: positive blood cultures, low sodium Time Seen by Provider: 05/14/21 16:36 History of Present Illness HPI narrative: Woman who was seen yesterday in the emergency room with complaints of ?being sick all week?. She was noted to be hyponatremic, appeared acutely ill and had signs of urinary tract infection. She was treated with ceftriaxone in the emergency department. Urine culture from 3 years previously had shown a pansensitive E coli so she was discharged home with Keflex when she declined hospital admission at that time. 4/4 Blood cultures returned positive for E coli in less than 24 hours. Patient was contacted and stated that she was not feeling significantly better. She was continuing to have the downward pressure in her bladder(she denies overt dysuria) and she has not noted dizziness when she stands up nor bilateral flank pain. She describes no dyspnea, vomiting, diarrhea. She notes that she has been having fevers and chills today feels that her cognitive function is not as crisp as it usually is in generally continues to feel unwell. We requested that she return to the emergency department with anticipation of IV antibiotics and hospitalization. Related Data Previous Rx's Medication Instructions Recorded desonide 0.05 % topical ointment 1 applictn TOPICAL DAILY #30 gram 12/11/19 cephalexin 500 mg PO TID #21 cap 05/13/21 Allergies Allergy/AdvReac Type Severity Reaction Status Date / Time No Known Drug Allergies Allergy Verified 05/13/21 14:25 Review of Systems Review of Systems Narrative: Remainder of complete review of systems is otherwise unremarkable except for that included in the HPI. Patient History Medical History Eczema Essential hypertension (07/03/11) Former smoker (07/03/11) Hyperlipidemia (07/03/11) Lichen sclerosus et atrophicus (12/23/15) Osteopenia Spinal stenosis Tubular adenoma of colon (07/18/17) Surgical History History of bilateral salpingo-oophorectomy (BSO) (1967) History of tonsillectomy Hx of colonoscopy with polypectomy (04/2014) Hx of discectomy (03/2017) Status post appendectomy Status post breast lumpectomy (1989) Family History Father Alcoholic Smoker Heart disease Cancer Mother Alcoholic Osteoporosis CVA (cerebral vascular accident) Heart disease Social History marital status: unknown household members: none Smoking Status: Former smoker Tobacco: How many years used: 40 second hand exposure: Yes alcohol intake: current substance use type: does not use Smoking Status: Former smoker tobacco type: cigarettes alcohol intake frequency: a few times a week Substance Use Type: does not use Exam Narrative Exam Narrative: General: Mildly fatigued appearing but in no acute distress. Able to give a complete and coherent history. Well-nourished well-developed HEENT: Moist mucous membranes, normal sclera with reactive pupils, Neck: No JVD, supple Respiratory: Lungs are clear to auscultation, no wheezing no rales no rhonchi. Full and symmetrical air movement Cardiac: Mild tachycardia but otherwise regular rate and rhythm no murmurs no bruits Abdomen: Soft, nontender, good bowel tones, no flank pain Skin: Warm and dry, no rashes Neurologic: Complains of feeling cognitively slowed but otherwise Grossly n eurologically intact with no obvious asymmetries or abnormalities Extremities: No trauma, well perfused Psych: Cooperative, appropriate insight and affect Initial Vital Signs Initial Vital Signs: Vital Signs Temperature 97.5 F L 05/14/21 16:32 Pulse Rate 80 05/14/21 16:32 Respiratory Rate 19 05/14/21 16:32 Blood Pressure 139/89 05/14/21 16:32 Pulse Oximetry 98 05/14/21 16:32 Course Orders Ordered: ED Orders 05/14/21 16:34 XR chest 1V Stat 05/14/21 16:45 Blood Culture Stat COVID19 - ADMIT ([employer] swab/PCR) Stat 05/14/21 16:55 Complete Blood Count AUTO DIFF Stat Comprehensive Metabolic Panel Stat Lactate (Lactic Acid) Stat Lipase Stat Magnesium Stat Troponin I Stat 05/14/21 18:30 Education, smoking cessation ONGOING 05/14/21 19:00 Lactate (Lactic Acid) Stat 05/15/21 05:00 Basic Metabolic Panel Routine Complete Blood Count AUTO DIFF Routine Acetaminophen (Acetaminophen 325 Mg Tablet) 650 mg PO Q6HR PRN PRN Reason: Fever/Mild Pain (1-3) Enoxaparin Sodium (Enoxaparin 40 Mg/0.4 Ml Syringe) 40 mg SUBCUT DAILY RITA Hydromorphone HCl (Hydromorphone 0.5 Mg Inj) 0.5 mg IV Q6H PRN PRN Reason: Pain, Severe (7-10) Sodium Chloride (Normal Saline 0.9%) 1,000 mls @ 100 mls/hr IV CONT RITA Last Admin: 05/14/21 19:29 Dose: 100 mls/hr Documented by: SANGEETHA Ibuprofen (Ibuprofen 600 Mg Tablet) 600 mg PO Q6HR PRN PRN Reason: Pain, Moderate (4-6) Last Admin: 05/14/21 20:02 Dose: 600 mg Documented by: SANGEETHA Naloxone HCl (Naloxone 0.4 Mg/Ml Vial) 0.2 mg IV Q2MIN PRN PRN Reason: Opiate Reversal Ondansetron HCl (Ondansetron 4 Mg/2 Ml Inj) 4 mg IV Q8HR PRN PRN Reason: Nausea And Vomiting Discontinued Medications Sodium Chloride (Normal Saline 0.9%) 1,000 mls @ 1,000 mls/hr IV BOLUS ONE Stop: 05/14/21 17:32 Last Infusion: 05/14/21 18:11 Dose: 0 mls/hr Documented by: Admin: 05/14/21 17:07 Dose: 1,000 mls/hr Documented by: SANTIAGO Piperacillin Sod/Tazobactam (Sod 4.5 gm/ Sodium Chloride) 100 mls @ 200 mls/hr IV NOW ONE Stop: 05/14/21 16:34 Last Infusion: 05/14/21 18:12 Dose: 0 mls/hr Documented by: Admin: 05/14/21 17:07 Dose: 200 mls/hr Documented by: SANTIAGO Ceftriaxone Sodium 1,000 mg/ (Sodium Chloride) 100 mls @ 200 mls/hr IV NOW ONE Stop: 05/14/21 18:43 Last Admin: 05/14/21 19:29 Dose: 200 mls/hr Documented by: SANGEETHA Potassium Chloride (Potassium Chloride 20 Meq Tab) 40 meq PO NOW ONE Stop: 05/14/21 18:46 Last Admin: 05/14/21 19:29 Dose: 40 meq Documented by: SANGEETHA Vital Signs Vital signs: Vital Signs - 8 hr 05/14/21 16:32 05/14/21 16:42 05/14/21 16:45 Temperature 97.5 F L Pulse Rate 80 82 82 Respiratory Rate 19 21 20 Blood Pressure 139/89 Pulse Oximetry 98 100 99 05/14/21 17:00 05/14/21 17:09 05/14/21 17:15 Temperature Pulse Rate 81 79 79 Respiratory Rate 18 20 22 Blood Pressure 126/59 L Pulse Oximetry 98 99 99 05/14/21 17:30 05/14/21 17:45 05/14/21 18:00 Temperature Pulse Rate 78 82 81 Respiratory Rate 24 31 H 27 H Blood Pressure 132/71 107/82 Pulse Oximetry 99 98 96 05/14/21 18:15 05/14/21 18:50 05/14/21 18:52 Temperature Pulse Rate 77 87 85 Respiratory Rate 25 H 30 H 10 L Blood Pressure 150/67 H Pulse Oximetry 97 90 L 96 Medical Decision Making Medical Records Medical records reviewed: Yes I reviewed the patient's medical records. Lab Data Lab results reviewed: Yes I reviewed the patient's lab results. Result diagrams: 05/14/21 16:55 05/14/21 16:55 Labs: Lab Results 05/14/21 05/14/21 05/14/21 Range/Units 16:45 16:55 16:55 WBC 9.7 (4.5-11.0) X10^3/uL RBC 3.68 L (4.0-5.2) X10^6/uL Hgb 11.2 L (12.0-16.0) g/dL Hct 33.9 L (36-46) % MCV 92.1 (80-100) fL MCH 30.5 (26-34) PG MCHC 33.1 (30-36) % RDW 13.7 (11.6-14.8) % Plt Count 219 (150-400) X10^3/uL Neut % (Auto) 72.6 (50-75) % Lymph % (Auto) 16.3 L (25-40) % [place] % (Auto) 9.2 (3-14) % Eos % (Auto) 1.2 L (2-4) % Baso % (Auto) 0.7 (0-2) % Neut # (Auto) 7000 (7778-4645) /uL Lymph # (Auto) 1600 (2165-2115) /uL [place] # (Auto) 900 (0-900) /uL Eos # (Auto) 100 (0-450) /uL Baso # (Auto) 100 (0-100) /uL Sodium 132 L (137-145) mmol/L Potassium 3.3 L (3.4-5.1) mmol/L Chloride 102 (98-107) mmol/L Carbon Dioxide 20 L (22-32) mmol/L BUN 20 H (7-17) mg/dL Creatinine 0.97 (0.52-1.04) mg/dL Estimated GFR 56.8 L (>60) mL/min BUN/Creatinine Ratio 20.6 (6-22) Glucose 103 (80-110) mg/dL Lactate (0.7-2.1) mmol/L Calcium 9.1 (8.4-10.2) mg/dL Magnesium (1.6-2.3) mg/dL Total Bilirubin 0.5 (0.2-1.3) mg/dL AST 73 H (14-36) IU/L ALT 79 H (<35) IU/L Alkaline Phosphatase 165 H (38-126) U/L Troponin I (0.01-0.034) ng/mL Total Protein 6.9 (6.3-8.2) g/dL Albumin 3.3 L (3.5-5.0) g/dL Globulin 3.6 (1.7-4.1) g/dL Albumin/Globulin Ratio 0.9 L (1.0-2.8) Lipase (23-300) U/L SARS-CoV-2 (PCR) Negative (Negative) 05/14/21 05/14/21 Range/Units 16:55 16:55 WBC (4.5-11.0) X10^3/uL RBC (4.0-5.2) X10^6/uL Hgb (12.0-16.0) g/dL Hct (36-46) % MCV (80-100) fL MCH (26-34) PG MCHC (30-36) % RDW (11.6-14.8) % Plt Count (150-400) X10^3/uL Neut % (Auto) (50-75) % Lymph % (Auto) (25-40) % [place] % (Auto) (3-14) % Eos % (Auto) (2-4) % Baso % (Auto) (0-2) % Neut # (Auto) (3408-6020) /uL Lymph # (Auto) (5241-7857) /uL [place] # (Auto) (0-900) /uL Eos # (Auto) (0-450) /uL Baso # (Auto) (0-100) /uL Sodium (137-145) mmol/L Potassium (3.4-5.1) mmol/L Chloride (98-107) mmol/L Carbon Dioxide (22-32) mmol/L BUN (7-17) mg/dL Creatinine (0.52-1.04) mg/dL Estimated GFR (>60) mL/min BUN/Creatinine Ratio (6-22) Glucose (80-110) mg/dL Lactate 1.1 (0.7-2.1) mmol/L Calcium (8.4-10.2) mg/dL Magnesium 2.0 (1.6-2.3) mg/dL Total Bilirubin (0.2-1.3) mg/dL AST (14-36) IU/L ALT (<35) IU/L Alkaline Phosphatase (38-126) U/L Troponin I < 0.012 (0.01-0.034) ng/mL Total Protein (6.3-8.2) g/dL Albumin (3.5-5.0) g/dL Globulin (1.7-4.1) g/dL Albumin/Globulin Ratio (1.0-2.8) Lipase 100 (23-300) U/L SARS-CoV-2 (PCR) (Negative) MDM Narrative Medical decision making narrative: 70-year-old woman with urinary tract infection, presumed E coli with 4/4 blood culture bottles positive for E coli. No evidence of hypotension or sepsis at this time. She was hyponatremic yesterday at 1:29 a.m. which has improved slightly to 132 today. Her potassium is at 3.3 today. Transaminases and alkaline phosphatase have increased slightly. Procalcitonin was significantly elevated yesterday. In the emergency department today she is given Zosyn IV, along with fluid. She will be admitted to the hospitalist service for further evaluation and IV antibiotics. Discharge Plan Departure Patient Disposition: Admitted as Observation Clinical Impression: Acute UTI, Bacteremia due to Escherichia coli Admit Date/Time: 05/14/21 18:54 Admit Provider: Jaida Langston
--- NOTE | 2021-05-14 16:34 | DI.RAD.S_ITS ---
PROCEDURE: XR CHEST 1V INDICATIONS: acute illness with + blood cultures TECHNIQUE: One view of the chest was acquired. COMPARISON: [facility], CR, XR CHEST 1V, 05/13/2021, 16:04. FINDINGS: Surgical changes and devices: Lower cervical fusion hardware Lungs and pleura: Lungs are clear. No pleural effusions or pneumothorax. Mediastinum: Mediastinal contours appear normal. Heart size is normal. Bones and chest wall: No suspicious bony lesions. Overlying soft tissues appear unremarkable. IMPRESSION: No evidence acute pulmonary process. Dictated by: Gaamliel Colvin M.D. on 05/14/2021 at 16:12 Approved by: Gamaliel Colvin M.D. on 05/14/2021 at 16:13
[2021-05-14] MEDS: PIPERACILLIN/TAZO 4.5 GM in SODIUM CHLORIDE 0.9% 100 ML 200 ML IV (17:07)
[2021-05-14] MEDS: SODIUM CHLORIDE 0.9% 1,000 ML 1000 ML IV (17:07)
[2021-05-14 17:16] LABS: Add Manual Diff / Slide Review NO; Basophils Absolute Auto 100 /uL (0-100); Basophils Percent Auto 0.7 % (0-2); Eosinophils Absolute Auto 100 /uL (0-450); Eosinophils Percent Auto 1.2 % (2-4); Hematocrit 33.9 % (36-46); Hemoglobin 11.2 g/dL (12.0-16.0); Lymphocytes Absolute Auto 1600 /uL (1100-4500); Lymphocytes Percent Auto 16.3 % (25-40); Mean Corpuscular HGB Conc 33.1 % (30-36); Mean Corpuscular Hemoglobin 30.5 PG (26-34); Mean Corpuscular Volume 92.1 fL (80-100); Monocytes Absolute Auto 900 /uL (0-900); Monocytes Percent Auto 9.2 % (3-14); Neutrophils Absolute Auto 7000 /uL (1500-7000); Neutrophils Percent Auto 72.6 % (50-75); Platelet Count 219 X10^3/uL (150-400); Red Blood Cell Count 3.68 X10^6/uL (4.0-5.2); Red Cell Distribution Width 13.7 % (11.6-14.8); White Blood Cell Count 9.7 X10^3/uL (4.5-11.0)
[2021-05-14 17:21] LABS: Alanine Aminotransferase 79 IU/L (<35); Albumin 3.3 g/dL (3.5-5.0); Albumin Globulin Ratio 0.9 (1.0-2.8); Alkaline Phosphatase 165 U/L (38-126); Aspartate Aminotransferase 73 IU/L (14-36); BUN Creatinine Ratio 20.6 (6-22); Bilirubin Total 0.5 mg/dL (0.2-1.3); Blood Urea Nitrogen 20 mg/dL (7-17); Calcium 9.1 mg/dL (8.4-10.2); Carbon Dioxide 20 mmol/L (22-32); Chloride 102 mmol/L (98-107); Estimated Glomerular Filt Rate 56.8 mL/min (>60); Globulin 3.6 g/dL (1.7-4.1); Glucose 103 mg/dL (80-110); HEMOLYSIS < 15 (0-50); Lactate (Lactic Acid) 1.1 mmol/L (0.7-2.1); Potassium 3.3 mmol/L (3.4-5.1); Sodium 132 mmol/L (137-145); Total Protein 6.9 g/dL (6.3-8.2)
[2021-05-14 17:30] LABS: Lipase 100 U/L (23-300)
[2021-05-14 17:43] LABS: Troponin I < 0.012 ng/mL (0.01-0.034)
[2021-05-14 17:55] LABS: COVID19 - ADMIT (NP swab/PCR) Negative (Negative)
--- NOTE | 2021-05-14 18:34 | P.HP_ITS ---
History of Present Illness History of Present Illness Date Patient Seen: 05/14/21 Time Patient Seen: 18:35 Chief complaint: positive blood cultures, low sodium Narrative: This is a 70-year-old female otherwise healthy female who presents with 1 week of nausea and generalized abdominal discomfort along with chills and feeling feverish and also quite weak. In the emergency department yesterday her sodium was 129 and her UA was abnormal so she was given a dose of ceftriaxone and started on oral Keflex. Today the blood cultures came back positive for E coli so she was called back in. She says she is feeling worse today. She has not measured her temperature. She does get frequent urinary tract infections but has never been septic before. She has no history of kidney stones or other urinary obstructive pathology. Her white blood count remains normal at 9.7 and her procalcitonin level is 5.75. The sodium is up to 132 today and the potassium is down to 3.3. Her lactic acid level is pending. She is hemodynamically stable without significant hypotension. She is hesitant to take scientifically proven medication and prefers only natural products but is willing to take antibiotics today. She has been COVID vaccinated and her COVID test is negative. Patient History Medical History (Updated 05/14/21 @ 17:45 by Haley Osborn MD) Eczema Essential hypertension (07/03/11) Former smoker (07/03/11) Hyperlipidemia (07/03/11) Lichen sclerosus et atrophicus (12/23/15) Osteopenia Spinal stenosis Tubular adenoma of colon (07/18/17) Surgical History History of bilateral salpingo-oophorectomy (BSO) (1967) History of tonsillectomy Hx of colonoscopy with polypectomy (04/2014) Hx of discectomy (03/2017) Status post appendectomy Status post breast lumpectomy (1989) Family & Social History Family History Father Alcoholic Smoker Heart disease Cancer Mother Alcoholic Osteoporosis CVA (cerebral vascular accident) Heart disease Social History: household members none Safety & Behavioral: Feels Safe in Current Yes Environment Been Physically Hurt or No Threatened By a Person Tobacco & Substance use: Smoking Status Former smoker alcohol intake never alcohol intake frequency a few times a week Substance Use Type does not use Meds Home Medications and Allergies Home Medications Medication Instructions Recorded Confirmed Type desonide 0.05 % topical ointment 1 applictn TOPICAL DAILY #30 gram 12/11/19 05/13/21 Rx cephalexin 500 mg PO TID #21 cap 05/13/21 Rx Allergies Allergy/AdvReac Type Severity Reaction Status Date / Time No Known Drug Allergies Allergy Verified 05/13/21 14:25 Review of Systems Review of Systems Narrative: Positive for nausea, chills, feeling feverish and weak Negative for chest pain, abdominal pain, dysuria, bleeding, seizures, rash, difficulty talking, new allergies. ROS: Yes All systems reviewed with the patient and are negative except as otherwise documented Exam Vital Signs (past 8 hours): - 05/14/21 16:32 05/14/21 16:42 05/14/21 16:45 Temperature 97.5 F L Pulse Rate 80 82 82 Respiratory Rate 19 21 20 Blood Pressure 139/89 Pulse Oximetry 98 100 99 05/14/21 17:00 05/14/21 17:09 05/14/21 17:15 Temperature Pulse Rate 81 79 79 Respiratory Rate 18 20 22 Blood Pressure 126/59 L Pulse Oximetry 98 99 99 05/14/21 17:30 05/14/21 17:45 05/14/21 18:00 Temperature Pulse Rate 78 82 81 Respiratory Rate 24 31 H 27 H Blood Pressure 132/71 107/82 Pulse Oximetry 99 98 96 05/14/21 18:15 Temperature Pulse Rate 77 Respiratory Rate 25 H Blood Pressure Pulse Oximetry 97 Oxygen Delivery Method Room Air Narrative Exam Narrative: She is alert and oriented x3. No apparent distress. She says that her thought process is moving slower than usual but it is hard to detect th at. Pupils are equally round reactive to light and accommodation. Extraocular muscles are intact Sclerae are pink and nonicteric No lymph nodes are felt head, neck, supraclavicular area There is no thyromegaly JVD is less than 6 cm No carotid bruits are heard Heart is regular rate and rhythm without murmur Lungs are clear to auscultation bilaterally Abdomen is soft, bowel sounds positive, nontender, no organomegaly. Extremities have no ankle edema Skin has no rash Neurological exam Cranial nerves 2-12 test intact There is no tremor DTRs are symmetric and normal Motor function is 5/5 throughout Objective Labs Result Diagrams: 05/14/21 16:55 05/14/21 16:55 Labs: Laboratory Results - last 24 hr 05/14/21 05/14/21 05/14/21 16:45 16:55 16:55 WBC 9.7 RBC 3.68 L Hgb 11.2 L Hct 33.9 L MCV 92.1 MCH 30.5 MCHC 33.1 RDW 13.7 Plt Count 219 Neut % (Auto) 72.6 Lymph % (Auto) 16.3 L [place] % (Auto) 9.2 Eos % (Auto) 1.2 L Baso % (Auto) 0.7 Neut # (Auto) 7000 Lymph # (Auto) 1600 [place] # (Auto) 900 Eos # (Auto) 100 Baso # (Auto) 100 Sodium 132 L Potassium 3.3 L Chloride 102 Carbon Dioxide 20 L BUN 20 H Creatinine 0.97 Estimated GFR 56.8 L BUN/Creatinine Ratio 20.6 Glucose 103 Lactate Calcium 9.1 Magnesium Total Bilirubin 0.5 AST 73 H ALT 79 H Alkaline Phosphatase 165 H Troponin I Total Protein 6.9 Albumin 3.3 L Globulin 3.6 Albumin/Globulin Ratio 0.9 L Lipase SARS-CoV-2 (PCR) Negative 05/14/21 05/14/21 16:55 16:55 WBC RBC Hgb Hct MCV MCH MCHC RDW Plt Count Neut % (Auto) Lymph % (Auto) [place] % (Auto) Eos % (Auto) Baso % (Auto) Neut # (Auto) Lymph # (Auto) [place] # (Auto) Eos # (Auto) Baso # (Auto) Sodium Potassium Chloride Carbon Dioxide BUN Creatinine Estimated GFR BUN/Creatinine Ratio Glucose Lactate 1.1 Calcium Magnesium 2.0 Total Bilirubin AST ALT Alkaline Phosphatase Troponin I < 0.012 Total Protein Albumin Globulin Albumin/Globulin Ratio Lipase 100 SARS-CoV-2 (PCR) Assessment & Plan Assessment & Plan narrative: This is a 70-year-old female otherwise healthy female who presents with 1 week of nausea and generalized abdominal discomfort along with chills and feeling feverish and also quite weak. In the emergency department yesterday her sodium was 129 and her UA was abnormal so she was given a dose of ceftriaxone and started on oral Keflex. Today the blood cultures came back positive for E coli. E coli bacteremia secondary to urinary tract infection, present on admission. Acute and active. -ceftriaxone IV pending urine and blood culture sensitivities. -IV fluid support with NS at 100 mL/hr -Check lactic acid level -follow CBC, consider CT KUB if any urinary obstructive symptoms developed. Electrolyte abnormalities, present on admission. Active. -related to poor oral intake of acute bacteremia/UTI. -sodium level of 132, up from 129 yesterday -supplement with IV NS at 100 mL/hr -potassium of 3.2 today, will supplement with 40 mEq of potassium chloride p.o. x1. Enoxaparin for DVT prophylaxis Her backup decision maker is her son Charly Rodriguez.
[2021-05-14] MEDS: POTASSIUM CHLORIDE 20 MEQ TAB 40 MEQ PO (19:29)
[2021-05-14] MEDS: cefTRIAXone 1,000 MG in SODIUM CHLORIDE 0.9% 100 ML 200 ML IV (19:29)
[2021-05-14] MEDS: SODIUM CHLORIDE 0.9% 1,000 ML 100 ML IV (19:29)
[2021-05-14] MEDS: IBUPROFEN 600 MG TABLET PO (20:02)
--- NOTE | 2021-05-15 01:34 | PC.NURSE ---
Patient reports to this RN that for the last week she has been taking 2 extra strength tylenol (500 mg each) every 3 hours for back pain. Patient educated on overuse of tylenol, max daily value recommended, and given ibuprofen as an alternative.
[2021-05-15 05:36] VITALS: BP 129/73; PULSE 71; RESP 16; TEMP 36.2; O2SAT 98
[2021-05-15] MEDS: SODIUM CHLORIDE 0.9% 1,000 ML 100 ML IV ×2 (05:41→17:29)
[2021-05-15 06:32] LABS: Acetaminophen < 10 ug/mL (10-30); Hemoglobin 10.5 g/dL (12.0-16.0); Mean Corpuscular HGB Conc 32.9 % (30-36); Mean Corpuscular Hemoglobin 30.4 PG (26-34); Mean Corpuscular Volume 92.3 fL (80-100); Platelet Count 245 X10^3/uL (150-400); Red Blood Cell Count 3.46 X10^6/uL (4.0-5.2); Red Cell Distribution Width 13.9 % (11.6-14.8); White Blood Cell Count 10.3 X10^3/uL (4.5-11.0)
[2021-05-15 06:33] LABS: BUN Creatinine Ratio 19.1 (6-22); Blood Urea Nitrogen 17 mg/dL (7-17); Calcium 9.1 mg/dL (8.4-10.2); Carbon Dioxide 21 mmol/L (22-32); Chloride 111 mmol/L (98-107); Estimated Glomerular Filt Rate > 60.0 mL/min (>60); Glucose 102 mg/dL (80-110); HEMOLYSIS < 15 (0-50); Sodium 137 mmol/L (137-145)
[2021-05-15 06:47] LABS: Add Manual Diff / Slide Review YES
[2021-05-15 07:22] LABS: Neutrophils Absolute Manual 6695 /uL (3000-5900); RBC Morphology Normal Morphology; Total Cells Counted 100
--- NOTE | 2021-05-15 07:31 | PM.PN.1 ---
Subjective Subjective Date Patient Seen: 05/15/21 Interval history: She says that she feels much better. Her nausea and general feeling of illness/unease has resolved 99%. So far there are no sensitivities back for the E coli bacteremia. She has no pain but her bladder is quite tender. Her white blood count is 10.3 with bands of 32%. The hemoglobin is 10.5. The albumin is low at 2.9. The AST has dropped from 73 down to 45 and the ALT has dropped from 79 down to 68. Discharge planning is working on an outpatient/home IV infusion plan to complete 2 weeks of treatment for the bacteremia. Exam Vital Signs (past 8 hours): - 05/15/21 05:36 Temperature 97.1 F L Pulse Rate 71 Respiratory Rate 16 Blood Pressure 129/73 Pulse Oximetry 98 Oxygen Delivery Method Room Air Oxygen Flow Rate 0 Narrative Exam Narrative: She is alert and oriented x3. She is in no apparent distress Heart is regular rate and rhythm without murmur Lungs are clear to auscultation bilaterally Abdomen is soft, bowel sounds positive, tender over the bladder which does not feel distended to me. Extremities no ankle edema Objective Labs Result Diagrams: 05/15/21 05:35 05/15/21 08:05 Labs: Laboratory Results - last 24 hr 05/14/21 05/14/21 05/14/21 16:45 16:55 16:55 WBC 9.7 RBC 3.68 L Hgb 11.2 L Hct 33.9 L MCV 92.1 MCH 30.5 MCHC 33.1 RDW 13.7 Plt Count 219 Neut % (Auto) 72.6 Lymph % (Auto) 16.3 L [place] % (Auto) 9.2 Eos % (Auto) 1.2 L Baso % (Auto) 0.7 Neut # (Auto) 7000 Lymph # (Auto) 1600 [place] # (Auto) 900 Eos # (Auto) 100 Baso # (Auto) 100 Total Counted Seg Neutrophils % Band Neutrophils % Lymphocytes % (Manual) Atypical Lymphs % Monocytes % (Manual) Eosinophils % (Manual) Neutrophils # (Manual) RBC Morphology Sodium 132 L Potassium 3.3 L Chloride 102 Carbon Dioxide 20 L BUN 20 H Creatinine 0.97 Estimated GFR 56.8 L BUN/Creatinine Ratio 20.6 Glucose 103 Lactate Calcium 9.1 Magnesium Total Bilirubin 0.5 AST 73 H ALT 79 H Alkaline Phosphatase 165 H Troponin I Total Protein 6.9 Albumin 3.3 L Globulin 3.6 Albumin/Globulin Ratio 0.9 L Lipase Acetaminophen SARS-CoV-2 (PCR) Negative 05/14/21 05/14/21 05/14/21 16:55 16:55 19:00 WBC RBC Hgb Hct MCV MCH MCHC RDW Plt Count Neut % (Auto) Lymph % (Auto) [place] % (Auto) Eos % (Auto) Baso % (Auto) Neut # (Auto) Lymph # (Auto) [place] # (Auto) Eos # (Auto) Baso # (Auto) Total Counted Seg Neutrophils % Band Neutrophils % Lymphocytes % (Manual) Atypical Lymphs % Monocytes % (Manual) Eosinophils % (Manual) Neutrophils # (Manual) RBC Morphology Sodium Potassium Chloride Carbon Dioxide BUN Creatinine Estimated GFR BUN/Creatinine Ratio Glucose Lactate 1.1 1.0 Calcium Magnesium 2.0 Total Bilirubin AST ALT Alkaline Phosphatase Troponin I < 0.012 Total Protein Albumin Globulin Albumin/Globulin Ratio Lipase 100 Acetaminophen SARS-CoV-2 (PCR) 05/15/21 05/15/21 05/15/21 05:35 05:35 05:35 WBC 10.3 RBC 3.46 L Hgb 10.5 L Hct 32.0 L MCV 92.3 MCH 30.4 MCHC 32.9 RDW 13.9 Plt Count 245 Neut % (Auto) Not Reportable Lymph % (Auto) Not Reportable [place] % (Auto) Not Reportable Eos % (Auto) Not Reportable Baso % (Auto) Not Reportable Neut # (Auto) Lymph # (Auto) Not Reportable [place] # (Auto) Not Reportable Eos # (Auto) Baso # (Auto) Not Reportable Total Counted 100 Seg Neutrophils % 33.0 L Band Neutrophils % 32.0 H Lymphocytes % (Manual) 18.0 L Atypical Lymphs % 4.0 H Monocytes % (Manual) 8.0 Eosinophils % (Manual) 5.0 H Neutrophils # (Manual) 6695 H RBC Morphology Normal morphology Sodium 137 Potassium 4.0 Chloride 111 H Carbon Dioxide 21 L BUN 17 Creatinine 0.89 Estimated GFR > 60.0 BUN/Creatinine Ratio 19.1 Glucose 102 Lactate Calcium 9.1 Magnesium Total Bilirubin AST ALT Alkaline Phosphatase Troponin I Total Protein Albumin Globulin Albumin/Globulin Ratio Lipase Acetaminophen < 10 L SARS-CoV-2 (PCR) [facility] Medical History Eczema Essential hypertension (07/03/11) Former smoker (07/03/11) Hyperlipidemia (07/03/11) Lichen sclerosus et atrophicus (12/23/15) Osteopenia Spinal stenosis Tubular adenoma of colon (07/18/17) Surgical History History of bilateral salpingo-oophorectomy (BSO) (1967) History of tonsillectomy Hx of colonoscopy with polypectomy (04/2014) Hx of discectomy (03/2017) Status post appendectomy Status post breast lumpectomy (1989) Family History Father Alcoholic Smoker Heart disease Cancer Mother Alcoholic Osteoporosis CVA (cerebral vascular accident) Heart disease Social History marital status: unknown household members: none Smoking Status: Former smoker Tobacco: How many years used: 40 second hand exposure: Yes alcohol intake: current substance use type: does not use Assessment & Plan Assessment & Plan narrative: This is a 70-year-old female otherwise healthy female who presents with 1 week of nausea and generalized abdominal discomfort along with chills and feeling feverish and also quite weak. In the emergency department yesterday her sodium was 129 and her UA was abnormal so she was given a dose of ceftriaxone and started on oral Keflex. Today the blood cultures came back positive for E coli. E coli bacteremia secondary to urinary tract infection, present on admission. Acute and active. -ceftriaxone IV pending urine and blood culture sensitivities. -potential discharge home 05/16 with PICC line and 2 weeks of IV ceftriaxone pending sensitivities and final duration decision. -32% bands with white blood count of 10.3 on 05/15 -IV fluid support with NS at 100 mL/hr, stop 05/15 -lactate 1.0 on 05/14 -follow CBC, consider CT KUB if any urinary obstructive symptoms developed. Electrolyte abnormalities, present on admission. Active. -related to poor oral intake of acute bacteremia/UTI. -sodium level of 137, up from 129 -supplement with IV NS at 100 mL/hr, stop 05/15 -potassium of 4.1 today, previously 3.2 and then supplemented with 40 of potassium oral Elevated liver enzymes, present on admission. Active. -SGOT and SGPT are dropping consistent with bacteremia as the cause Enoxaparin for DVT prophylaxis Her backup decision maker is her son Charly Rodriguez.
[2021-05-15 08:00] VITALS: BP 120/68; PULSE 70; RESP 15; TEMP 36.7; O2SAT 99
[2021-05-15 08:26] LABS: Alanine Aminotransferase 68 IU/L (<35); Albumin 2.9 g/dL (3.5-5.0); Albumin Globulin Ratio 0.8 (1.0-2.8); Alkaline Phosphatase 145 U/L (38-126); Aspartate Aminotransferase 45 IU/L (14-36); BUN Creatinine Ratio 20.8 (6-22); Bilirubin Total 0.4 mg/dL (0.2-1.3); Blood Urea Nitrogen 16 mg/dL (7-17); Carbon Dioxide 21 mmol/L (22-32); Chloride 110 mmol/L (98-107); Estimated Glomerular Filt Rate > 60.0 mL/min (>60); Globulin 3.5 g/dL (1.7-4.1); Glucose 101 mg/dL (80-110); HEMOLYSIS < 15 (0-50); Potassium 4.1 mmol/L (3.4-5.1); Sodium 137 mmol/L (137-145); Total Protein 6.4 g/dL (6.3-8.2)
[2021-05-15] MEDS: cefTRIAXone 1,000 MG in SODIUM CHLORIDE 0.9% 100 ML 200 ML IV (08:52)
[2021-05-15] MEDS: ENOXAPARIN 40 MG/0.4 ML SYRINGE SUBCUT (08:53)
--- NOTE | 2021-05-15 10:13 | CM.DANOTE ---
Addendum entered by Nesha Hawk R.N. 05/15/21 11:47: Spoke to patient about options for infusion, home versus coming to the hospital. Patient is electing to have her infusions at home. 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 Also, mentioned that home health nursing can also come in and perform dressing changes. Patient indicated, she can do it herself, but let her know that this is a sterile procedure, and would need to be done by a nurse. Had to ensure that she would be home bound while receiving these services, and stated, she would. She also has no preference of home health agencies, as she has never had this service before. Will go ahead and set up [facility] for patient, she has [place], as most likely they cover home infusions. [facility] is the agency on the calendar for this, and can use for home health services. Original Note: DCP: Case received, EMR reviewed and met with patient. Introduced self and role. Was able to obtain information regarding patient's baseline activity level prior to hospitalization, as well as her current living situation. DCP assessment completed with information currently available. Patient is a 70 year old female who admitted yesterday afternoon to the care of the hospitalist team. PCP: Jenn SOLORZANO. Payer: confirmed: [facility]. Patient came to the hospital via private vehicle secondary to her lab results, and was encouraged to come back to the hospital. She had been seen a day or two ago at the ER for UTI. After her blood culture results came back, it was noted that she had E-Coli, and was diagnosed with acute UTI/Bacteremia. Originally, patient had been discharged on oral antibiotic. She was encouraged to come back to be admitted with IV antibiotics. Met with patient in her room. She is alert and oriented, confirmed that she hardly takes no medications, tries to go the natural path. She originally did not want to stay in the hospital. Confirmed with her that she resides here in [place] alone. She has a son named Charly that lives in the [facility]. She is active, rides her bike, drives. Confirmed that her primary care provider, Nicole Nguyen, works in [place], so she drives to see her there. P: DCP to continue to follow. Discussed patient during team rounds, and hospitalist indicated that patient will need to be on 2 weeks of IV antibiotics, and PICC line will be placed tomorrow. He indicated that the medication should be the Ceftriaxone q 24 hours. Will discuss with patient to see if she wants to have home infusions, if she feels comfortable, or if she wants to come here to the hospital. Nesha Hawk RN/Hoof Trimmer
--- NOTE | 2021-05-15 10:52 | PC.NURSE ---
Addendum entered by Nilton Otero R.N. 05/15/21 13:35: continues to do well. son visiting. Original Note: Pt alert and oriented follows commands, offers no overt complaint. Up in window seat taking in the view. Pt resettled to recliner and shades drawn as it's getting warmer in the room. Pt up to shower.
[2021-05-15 11:31] VITALS: BP 125/70; PULSE 69; RESP 15; TEMP 36.6; O2SAT 100
--- NOTE | 2021-05-15 12:11 | CM.DPC ---
DCP Cont: Was able to speak to convention worker pharmacist at [facility]. Updated him on referral. Stated that they would work on the authorization tomorrow. He indicated, they work well with [facility]. Have already sent H&P and face sheet, will also send med sheets and labs. Faxed over H&P and face sheet to [facility]. Will complete a face to face as well. P: DCP to continue to follow. Plan is home with IV infusions with [facility]. and [facility]. Nesha Hawk RN/Produce Weigher
[2021-05-15 15:35] VITALS: BP 150/80; PULSE 84; RESP 19; TEMP 36.6; O2SAT 98
[2021-05-15 19:19] VITALS: BP 147/81; PULSE 79; RESP 17; TEMP 36.7; O2SAT 99
[2021-05-15 23:53] VITALS: BP 142/73; PULSE 81; RESP 16; TEMP 36.6; O2SAT 98
--- NOTE | 2021-05-16 03:08 | PC.NURSE ---
patient is alert and oriented. Breath sounds CTA with RA sat of 98%. HRR. BP elevated at 142/73 and has been intermittently elevated with history of essential hypertension not currently on medication. Denies nausea. BT present and reports chronic diarrhea unchanged from prior to admission. Denies dysuria or frequency with urination but states she does have urgency. Is able to turn herself in bed. Provided SBA when out of bed for safety. Complains of generalized arthritis pain mostly in back and legs but declined offer of pain medication. Refused SCD's so reminded to ankle wave. Fall risk score is moderate and bed alarm is activated.
[2021-05-16 03:10] VITALS: BP 144/75; PULSE 95; RESP 16; TEMP 36.2; O2SAT 96
[2021-05-16 05:55] LABS: Hematocrit 29.5 % (36-46); Hemoglobin 9.8 g/dL (12.0-16.0); Mean Corpuscular HGB Conc 33.1 % (30-36); Mean Corpuscular Hemoglobin 30.4 PG (26-34); Mean Corpuscular Volume 91.9 fL (80-100); Platelet Count 267 X10^3/uL (150-400); Red Blood Cell Count 3.21 X10^6/uL (4.0-5.2); Red Cell Distribution Width 14.1 % (11.6-14.8); White Blood Cell Count 11.7 X10^3/uL (4.5-11.0)
[2021-05-16 06:08] LABS: Alanine Aminotransferase 53 IU/L (<35); Albumin 2.7 g/dL (3.5-5.0); Albumin Globulin Ratio 0.9 (1.0-2.8); Alkaline Phosphatase 118 U/L (38-126); Aspartate Aminotransferase 24 IU/L (14-36); BUN Creatinine Ratio 17.6 (6-22); Bilirubin Total 0.4 mg/dL (0.2-1.3); Blood Urea Nitrogen 16 mg/dL (7-17); Calcium 8.9 mg/dL (8.4-10.2); Carbon Dioxide 23 mmol/L (22-32); Chloride 110 mmol/L (98-107); Estimated Glomerular Filt Rate > 60.0 mL/min (>60); Globulin 3.1 g/dL (1.7-4.1); Glucose 89 mg/dL (80-110); HEMOLYSIS < 15 (0-50); Potassium 4.1 mmol/L (3.4-5.1); Sodium 138 mmol/L (137-145); Total Protein 5.8 g/dL (6.3-8.2)
[2021-05-16 06:19] LABS: Add Manual Diff / Slide Review YES
[2021-05-16 08:10] VITALS: BP 144/75; PULSE 70; RESP 18; TEMP 36.6; O2SAT 98
[2021-05-16] MEDS: cefTRIAXone 1,000 MG in SODIUM CHLORIDE 0.9% 100 ML 200 ML IV (08:18)
[2021-05-16] MEDS: SODIUM CHLORIDE 0.9% FLUSH 10 ML IV (08:19)
[2021-05-16] MEDS: ENOXAPARIN 40 MG/0.4 ML SYRINGE SUBCUT (08:19)
[2021-05-16 10:42] LABS: Neutrophils Absolute Manual 8073 /uL (3000-5900); Total Cells Counted 100
[2021-05-16 10:43] LABS: Platelet Estimate Adequate on smear; RBC Morphology Normal Morphology
--- NOTE | 2021-05-16 12:17 | P.DS_ITS ---
History of Present Illness History of Present Illness Date Patient Seen: 05/16/21 Chief complaint: positive blood cultures, low sodium Narrative: This is a 70-year-old female otherwise healthy female who presents with 1 week of nausea and generalized abdominal discomfort along with chills and feeling feverish and also quite weak. In the emergency department yesterday her sodium was 129 and her UA was abnormal so she was given a dose of ceftriaxone and started on oral Keflex. Today the blood cultures came back positive for E coli so she was called back in. She says she is feeling worse today. She has not measured her temperature. She does get frequent urinary tract infections b ut has never been septic before. She has no history of kidney stones or other urinary obstructive pathology. Her white blood count remains normal at 9.7 and her procalcitonin level is 5.75. The sodium is up to 132 today and the potassium is down to 3.3. Her lactic acid level is pending. She is hemodynamically stable without significant hypotension. She is hesitant to take scientifically proven medication and prefers only natural products but is willing to take antibiotics today. She has been COVID vaccinated and her COVID test is negative. Discharge Providers Provider Date of admission: 05/14/21 18:54 Discharge Date: 05/16/21 Primary care physician: Jenn Liao PA-C Discharge provider: Regla Hernandez MD Summary Hospital Course Discharge Diagnosis: 1. E coli bacteremia 2. E coli urinary tract infection 3. Hypertension 4. Hyperlipidemia 5. Eczema Hospital Course: Patient was admitted to the hospital after evaluation in the emergency room revealed positive blood culture for E coli. The E coli in the urine and E coli in the blood was pansensitive. The patient was initially treated with IV ceftriaxone. She had improvement of her symptomatology. Patient had an elevation of her white count from 10.3-11.7. Patient was afebrile with a T-max of 99? 48 hours prior to discharge. She had no nausea or vomiting. She tolerated oral intake well. Patient was deemed appropriate for discharge and will be discharged home on oral Augmentin for her E coli UTI/bacteremia. Repeat blood cultures May 14, 2020 have been negative Status at Discharge Cognitive/behavioral status at discharge: oriented Functional status at discharge: independent ambulation Overall status at discharge: patient is back to baseline Time Spent with Patient Time spent: Less than 30 minutes Exam Vital Signs (past 8 hours): - 06/21/21 08:10 Temperature 97.9 F Pulse Rate 70 Respiratory Rate 18 Blood Pressure 144/75 H Pulse Oximetry 98 Oxygen Delivery Method Room Air Oxygen Flow Rate 0 Narrative Exam Narrative: Pleasant female lying in bed in no obvious distress Lungs: Clear to auscultation Cardiac exam: Regular rate and rhythm normal S1-S2 Abdomen: Soft and nontender Extremities: No edema Objective Labs Result Diagrams: 05/16/21 05:15 05/16/21 05:15 Labs: Laboratory Results - last 24 hr 05/16/21 05/16/21 05:15 05:15 WBC 11.7 H RBC 3.21 L Hgb 9.8 L Hct 29.5 L MCV 91.9 MCH 30.4 MCHC 33.1 RDW 14.1 Plt Count 267 Neut % (Auto) Not Reportable Lymph % (Auto) Not Reportable [place] % (Auto) Not Reportable Eos % (Auto) Not Reportable Baso % (Auto) Not Reportable Lymph # (Auto) Not Reportable [place] # (Auto) Not Reportable Baso # (Auto) Not Reportable Total Counted 100 Seg Neutrophils % 67.0 D Band Neutrophils % 2.0 L Lymphocytes % (Manual) 21.0 L Monocytes % (Manual) 7.0 Eosinophils % (Manual) 1.0 L Metamyelocytes % 2.0 H Neutrophils # (Manual) 8073 H Platelet Estimate Adequate on smear RBC Morphology Normal morphology Sodium 138 Potassium 4.1 Chloride 110 H Carbon Dioxide 23 BUN 16 Creatinine 0.91 Estimated GFR > 60.0 BUN/Creatinine Ratio 17.6 Glucose 89 Calcium 8.9 Total Bilirubin 0.4 AST 24 ALT 53 H Alkaline Phosphatase 118 Total Protein 5.8 L Albumin 2.7 L Globulin 3.1 Albumin/Globulin Ratio 0.9 L [facility] Medical History Eczema Essential hypertension (07/03/11) Former smoker (07/03/11) Hyperlipidemia (07/03/11) Lichen sclerosus et atrophicus (12/23/15) Osteopenia Spinal stenosis Tubular adenoma of colon (07/18/17) Surgical History History of bilateral salpingo-oophorectomy (BSO) (1967) History of tonsillectomy Hx of colonoscopy with polypectomy (04/2014) Hx of discectomy (03/2017) Status post appendectomy Status post breast lumpectomy (1989) Family History Father Alcoholic Smoker Heart disease Cancer Mother Alcoholic Osteoporosis CVA (cerebral vascular accident) Heart disease Social History marital status: unknown household members: none Smoking Status: Former smoker Tobacco: How many years used: 40 second hand exposure: Yes alcohol intake: current substance use type: does not use Discharge Assessment & Plan Assessment and Plan Assessment: 1. E coli bacteremia secondary to urinary tract infection 2. Hypertension 3. Hyperlipidemia Plan of Treatment: 1. Oral antibiotics for 14 day course 2. Follow-up with physician for test acute once antibiotics completed Discharge Plan Discharge Plan Patient Disposition: Home Discharge orders & Medications Prescriptions: New amoxicillin-pot clavulanate [Augmentin] 875-125 mg tablet 1 tab PO BID Qty: 24 RF: 0 Discontinued desonide 0.05 % ointment 1 applictn topical DAILY Qty: 30 RF: 3 cephalexin 500 mg capsule 500 mg PO TID Qty: 21 RF: 0 Follow up/Referrals: Jenn Liao PA-C [Primary Care Provider] - Discharge Health Status Multidrug resistant organism: No MDRO Diet/Activity/Treatments Diet: Diet as Tolerated Activity: as tolerated Discharge Data Primary Care Provider: Jenn Liao
[2021-05-16 12:20] VITALS: BP 143/87; PULSE 75; RESP 18; TEMP 36.6; O2SAT 96
--- NOTE | 2021-05-16 14:14 | CM.DPC ---
DCP: Per provider patient scheduled to d/c home today. No IV abx or HH needed. Met with patient and she is aware and agreeable to plan. KJS Discharge Planning/Care Management CM Discharge Assessment Start: 05/15/21 10:10 Freq: Status: Active Protocol: Document 05/15/21 10:11 (Rec: 05/15/21 10:23 [id number]) Discharge Planning Assessment Advance Directives? No History Provided By Patient,Medical Record Prior Living Arrangements House Household Members none Type of transporation used prior to Drives own vehicle admit Independent with ADL's Yes Is patient alert and oriented? Yes Caregiver for Another No Barriers to Discharge No Comment Will need to speak to patient to determine if she is comfortable having home IVs, versus coming here to the hospital. Discharge Plan Home Transportation Arrangement Family Referrals Initiated Other Additional Comment May put in referral for [facility], but will discuss with patient first. Whiteboard Updated in Patient Room with Yes name and ext. # of Sql Manager Review Status In Process Next Review Type Continued Stay Review 05/15/21 10:13 CM Disch. Assessment Note by Nesha Hawk Addendum entered by Nesha Hawk R.N. 05/15/21 11:47: Spoke to patient about options for infusion, home versus coming to the hospital. Patient is electing to have her infusions at home. 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 Also, mentioned that home health nursing can also come in and perform dressing changes. Patient indicated, she can do it herself, but let her know that this is a sterile procedure, and would need to be done by a nurse. Had to ensure that she would be home bound while receiving these services, and stated, she would. She also has no preference of home health agencies, as she has never had this service before. Will go ahead and set up [facility] for patient, she has [facility], as most likely they cover home infusions. [facility] is the agency on the calendar for this, and can use for home health services. Original Note: DCP: Case received, EMR reviewed and met with patient. Introduced self and role. Was able to obtain information regarding patient's baseline activity level prior to hospitalization, as well as her current living situation. DCP assessment completed with information currently available. Patient is a 70 year old female who admitted yesterday afternoon to the care of the hospitalist team. PCP: Jenn SOLORZANO. Payer: confirmed: [facility] [facility] [employer]. Patient came to the hospital via private vehicle secondary to her lab results, and was encouraged to come back to the hospital. She had been seen a day or two ago at the ER for UTI. After her blood culture results came back, it was noted that she had E-Coli, and was diagnosed with acute UTI/Bacteremia. Originally, patient had been discharged on oral antibiotic. She was encouraged to come back to be admitted with IV antibiotics. Met with patient in her room. She is alert and oriented, confirmed that she hardly takes no medications, tries to go the natural path. She originally did not want to stay in the hospital. Confirmed with her that she resides here in [place] alone. She has a son named Charly that lives in the [facility]. She is active, rides her bike, drives. Confirmed that her primary care provider, Nicole Nguyen, works in [place], so she drives to see her there. P: DCP to continue to follow. Discussed patient during team rounds, and hospitalist indicated that patient will need to be on 2 weeks of IV antibiotics, and PICC line will be placed tomorrow. He indicated that the medication should be the Ceftriaxone q 24 hours. Will discuss with patient to see if she wants to have home infusions, if she feels comfortable, or if she wants to come here to the hospital. Nesha Hawk RN/Museum Archivist Initialized on 05/15/21 10:13 - END OF NOTE Document 05/16/21 13:57 KJS (Rec: 05/16/21 14:03 KJS [id number]) Discharge Planning Assessment Assigned Sql Manager CHIOMA Trejo Contact Information Charly Rodriguez # [phone] ( son) Advance Directives? No History Provided By Patient,Medical Record Prior Living Arrangements House Household Members none Type of transporation used prior to Drives own vehicle admit Independent with ADL's Yes Is patient alert and oriented? Yes Caregiver for Another No Barriers to Discharge No Comment Will need to speak to patient to determine if she is comfortable having home IVs, versus coming here to the hospital. Discharge Plan Home Transportation Arrangement Family Referrals Initiated None needed Whiteboard Updated in Patient Room with Yes name and ext. # of Sql Manager Review Status In Process Next Review Type Continued Stay Review
--- NOTE | 2021-05-16 14:30 | PC.NURSE ---
Discharge note: Patient discharge per MD order, discussed importance of F/U with PMD, antibiotic adherence, and s/sx of infections. Ambulating independently, dressed self. Patient verbalized understanding of discharge instructions. Home via private vehicle accompanied by daughter.
--- NOTE | 2021-07-05 13:58 | PC.NURSE ---
Late Entry; Ceftriaxone infusion initiated 05/14 at 19:29 complete at 20:00.
== END 2021-05-16 14:35 | disposition home or self-care (01) | DRG 690 ==
LOC: ED 17:45 → AC 19:08
PROVIDERS: Nurse Practitioner Family; Admitting Provider Family Medicine; Emergency Provider Emergency Medicine; PCP Physician Assistant; Referring Provider Emergency Medicine; Visit Provider Family Medicine
DX: N39.0 Urinary tract infection, site not specified (principal); R78.81 Bacteremia; E87.1 Hypo-osmolality and hyponatremia; B96.20 Unspecified Escherichia coli [E. coli] as the cause of diseases classified elsewhere; I10 Essential (primary) hypertension; E78.5 Hyperlipidemia, unspecified; Z20.822 Contact with and (suspected) exposure to COVID-19; Z87.891 Personal history of nicotine dependence
CPT/HCPCS: 36415; 36592; 71045; 80048; 80053; 80329; 81001; 83605; 83690; 83735; 84145; 84484; 85007; 85025; 87040; 87077; 87086; 87150; 87186; 87205; 87502; 87635; 93005; 96361; 96365; 96366; 96367; 96372; 99284; C9803; G0378; G0480; J0696; J1650; J2543

== ENCOUNTER → 2021-05-30 08:56 | Outpatient (CLI) | payer OTHER, SELFPAY ==
[2021-05-14 19:27] VITALS: BMI 26.9
[2021-05-30 09:13] LABS: Add Manual Diff / Slide Review NO; Basophils Absolute Auto 0 /uL (0-100); Basophils Percent Auto 0.4 % (0-2); Eosinophils Absolute Auto 0 /uL (0-450); Eosinophils Percent Auto 0.3 % (2-4); Hematocrit 39.9 % (36-46); Hemoglobin 13.5 g/dL (12.0-16.0); Lymphocytes Absolute Auto 1900 /uL (1100-4500); Lymphocytes Percent Auto 25.2 % (25-40); Mean Corpuscular HGB Conc 33.7 % (30-36); Mean Corpuscular Hemoglobin 30.7 PG (26-34); Mean Corpuscular Volume 91.2 fL (80-100); Monocytes Absolute Auto 500 /uL (0-900); Monocytes Percent Auto 6.2 % (3-14); Neutrophils Absolute Auto 5100 /uL (1500-7000); Neutrophils Percent Auto 67.9 % (50-75); Platelet Count 353 X10^3/uL (150-400); Red Blood Cell Count 4.38 X10^6/uL (4.0-5.2); White Blood Cell Count 7.4 X10^3/uL (4.5-11.0)
[2021-05-30 09:27] LABS: Alanine Aminotransferase 17 IU/L (<35); Albumin Globulin Ratio 1.1 (1.0-2.8); Alkaline Phosphatase 85 U/L (38-126); Aspartate Aminotransferase 16 IU/L (14-36); Bilirubin Total 0.8 mg/dL (0.2-1.3); Blood Urea Nitrogen 18 mg/dL (7-17); Calcium 9.8 mg/dL (8.4-10.2); Carbon Dioxide 27 mmol/L (22-32); Chloride 103 mmol/L (98-107); Estimated Glomerular Filt Rate > 60.0 mL/min (>60); Globulin 3.7 g/dL (1.7-4.1); Glucose 99 mg/dL (80-110); HEMOLYSIS < 15 (0-50); Potassium 4.3 mmol/L (3.4-5.1); Sodium 137 mmol/L (137-145); Total Protein 7.7 g/dL (6.3-8.2)
== END ==
PROVIDERS: PCP Nurse Practitioner Family; Referring Provider Physician Assistant; Visit Provider Physician Assistant
DX: L50.9 Urticaria, unspecified (principal)
CPT/HCPCS: 36415; 80053; 85025

== ENCOUNTER → 2022-02-09 08:22 | Outpatient (CLI) | payer OTHER, SELFPAY ==
[2021-11-03 08:29] VITALS: BMI 26.9
[2022-02-09 09:15] LABS: Appearance Urine UA CLEAR; Bilirubin Urine UA NEGATIVE (NEGATIVE); Color Urine UA YELLOW; Glucose Urine UA NEGATIVE (Negative); Ketones Urine UA NEGATIVE (NEGATIVE); Leukocyte Esterase Urine UA NEGATIVE (NEGATIVE); Nitrite Urine UA NEGATIVE (Negative); Occult Blood Urine UA NEGATIVE (Negative); Protein Urine UA NEGATIVE (Negative); Specific Gravity Urine UA 1.015 (1.000-1.035); Urobilinogen Urine UA 0.2 E.U./dL (0.2)
[2022-02-09 09:26] LABS: RBC Urine 0-1/HPF (0-5/HPF); pH Urine UA 5.5 (4.5-8.0)
[2022-02-09 09:27] LABS: Bacteria Urine Occasional (0-1); Culture Indicated Urine Cult Not Indicated; Squamous Epithelial Cell Urine 0-1 /HPF (0-5/HPF); WBC Urine None Seen (0-5/HPF)
[2022-02-09 10:36] LABS: Alanine Aminotransferase 18 IU/L (<35); Albumin 4.1 g/dL (3.5-5.0); Albumin Globulin Ratio 1.3 (1.0-2.8); Alkaline Phosphatase 36 U/L (38-126); Aspartate Aminotransferase 19 IU/L (14-36); BUN Creatinine Ratio 26.9 (6-22); Bilirubin Total 0.8 mg/dL (0.2-1.3); Blood Urea Nitrogen 25 mg/dL (7-17); Calcium 9.8 mg/dL (8.4-10.2); Carbon Dioxide 27 mmol/L (22-32); Chloride 103 mmol/L (98-107); Cholesterol 300 mg/dL (140-199); Estimated Glomerular Filt Rate 59.4 mL/min (>60); Globulin 3.1 g/dL (1.7-4.1); Glucose 76 mg/dL (80-110); HDL Cholesterol 71 mg/dL (40-60); HEMOLYSIS < 15 (0-50); LDL Cholesterol Calculated 207 mg/dL (<100); Potassium 4.1 mmol/L (3.4-5.1); Sodium 138 mmol/L (137-145); Total Protein 7.2 g/dL (6.3-8.2); Triglycerides 109 mg/dL (35-150)
== END ==
PROVIDERS: Referring Provider Family Medicine; Visit Provider Family Medicine
DX: E78.2 Mixed hyperlipidemia (principal); R39.15 Urgency of urination
CPT/HCPCS: 36415; 80053; 80061; 81001

== ENCOUNTER → 2023-02-26 09:16 | Outpatient (CLI) | payer OTHER, SELFPAY ==
[2021-11-03 08:29] VITALS: BMI 26.9
[2023-02-26 12:03] LABS: Alanine Aminotransferase 24 IU/L (<35); Albumin 4.2 g/dL (3.5-5.0); Albumin Globulin Ratio 1.2 (1.0-2.8); Alkaline Phosphatase 60 U/L (38-126); Aspartate Aminotransferase 22 IU/L (14-36); BUN Creatinine Ratio 33.7 (6-22); Bilirubin Total 0.6 mg/dL (0.2-1.3); Blood Urea Nitrogen 28 mg/dL (7-17); Calcium 9.7 mg/dL (8.4-10.2); Carbon Dioxide 27 mmol/L (22-32); Chloride 101 mmol/L (98-107); Cholesterol 281 mg/dL (140-199); Estimated Glomerular Filt Rate > 60 mL/min (>60); Globulin 3.5 g/dL (1.7-4.1); Glucose 81 mg/dL (80-110); HDL Cholesterol 57 mg/dL (40-60); HEMOLYSIS < 15 (0-50); LDL Cholesterol Calculated 198 mg/dL (<100); Potassium 4.7 mmol/L (3.4-5.1); Sodium 137 mmol/L (137-145); Total Protein 7.7 g/dL (6.3-8.2); Triglycerides 132 mg/dL (35-150)
[2023-02-26 12:50] LABS: Vitamin B12 718 pg/mL (239-931)
== END ==
PROVIDERS: PCP Family Medicine; Referring Provider Family Medicine; Visit Provider Family Medicine
DX: E78.5 Hyperlipidemia, unspecified (principal); I10 Essential (primary) hypertension; R20.2 Paresthesia of skin
CPT/HCPCS: 36415; 80053; 80061; 82607

== ENCOUNTER → 2023-03-12 13:43 | Outpatient (CLI) | payer OTHER, SELFPAY ==
[2021-11-03 08:29] VITALS: BMI 26.9
--- NOTE | 2023-03-12 13:44 | DI.MG.S_ITS ---
BILATERAL DIGITAL DIAGNOSTIC MAMMOGRAM 3D/2D: 03/12/2023 CLINICAL: Left breast pain and Itching. Comparison is made to exams dated: 12/24/2019 mammogram, 03/17/2014 mammogram, and 11/07/2010 mammogram - [facility]. There are scattered areas of fibroglandular density in both breasts (category b / 25%-50% glandular tissue). There are benign vascular calcifications in both breasts. No significant masses, calcifications, or other findings are seen in either breast. There has been no significant interval change. IMPRESSION: BENIGN There is no mammographic evidence of malignancy. Patient reports bilateral skin rashes. Patient is advised to monitor for significant change. Clinical follow-up is recommended. A 1 year screening mammogram is recommended. Based on the Tyrer Cuzick model (a risk assessment model) the patient's lifetime risk is 3.7% and her 10 year risk is 2.8%. According to the ACR, ACS, and NCCN guidelines, an annual breast MRI exam along with mammogram is recommended if the patient's lifetime risk is 20% or greater. This exam was interpreted at Station ID: [id number]. Electronically Signed By: Greg Madera M.D. slc/:03/12/2023 14:40:27 letter sent: Normal Exam ACR BI-RADS Category 2: Benign Finding(s) 3342F
== END ==
PROVIDERS: PCP Family Medicine; Referring Provider Family Medicine; Visit Provider Family Medicine
DX: N64.4 Mastodynia (principal); N64.59 Other signs and symptoms in breast
CPT/HCPCS: 77066; G0279

== ENCOUNTER → 2023-04-05 08:15 | Outpatient (CLI) | payer OTHER, SELFPAY ==
[2021-11-03 08:29] VITALS: BMI 26.9
== END ==
PROVIDERS: PCP Family Medicine; Visit Provider Specialist
DX: N95.2 Postmenopausal atrophic vaginitis (principal); N39.46 Mixed incontinence; N30.80 Other cystitis without hematuria; Z87.440 Personal history of urinary (tract) infections; Z87.898 Personal history of other specified conditions
CPT/HCPCS: 51798; 52000; 81002; 87077; 87086; 87186; 99215

== ENCOUNTER → 2024-03-26 08:32 | Outpatient (CLI) | payer OTHER, SELFPAY ==
[2021-11-03 08:29] VITALS: BMI 26.9
[2024-03-26 09:46] LABS: Add Manual Diff / Slide Review NO; Basophils Absolute Auto 100 /uL (0-100); Basophils Percent Auto 0.9 % (0-2); Eosinophils Absolute Auto 100 /uL (0-450); Eosinophils Percent Auto 1.5 % (2-4); Hematocrit 37.6 % (36-46); Hemoglobin 12.8 g/dL (12.0-16.0); Lymphocytes Absolute Auto 1400 /uL (1100-4500); Lymphocytes Percent Auto 20.7 % (25-40); Mean Corpuscular HGB Conc 34.1 % (30-36); Mean Corpuscular Volume 91.1 fL (80-100); Monocytes Absolute Auto 500 /uL (0-900); Monocytes Percent Auto 6.9 % (3-14); Neutrophils Absolute Auto 4900 /uL (1500-7000); Platelet Count 270 X10^3/uL (150-400); Red Blood Cell Count 4.13 X10^6/uL (4.0-5.2)
[2024-03-26 10:12] LABS: Alanine Aminotransferase 14 IU/L (<35); Albumin 4.3 g/dL (3.5-5.0); Albumin Globulin Ratio 1.4 (1.0-2.8); Alkaline Phosphatase 58 U/L (38-126); Aspartate Aminotransferase 17 IU/L (14-36); BUN Creatinine Ratio 23.9 (6-22); Bilirubin Total 0.9 mg/dL (0.2-1.3); Blood Urea Nitrogen 17 mg/dL (7-17); Calcium 9.8 mg/dL (8.4-10.2); Carbon Dioxide 27 mmol/L (22-32); Chloride 105 mmol/L (98-107); Cholesterol 286 mg/dL (140-199); Estimated Glomerular Filt Rate > 60 mL/min (>60); Glucose 85 mg/dL (80-110); HDL Cholesterol 69 mg/dL (40-60); HEMOLYSIS < 15 (0-50); LDL Cholesterol Calculated 198 mg/dL (<100); Potassium 4.7 mmol/L (3.4-5.1); Sodium 137 mmol/L (137-145); Total Protein 7.3 g/dL (6.3-8.2); Triglycerides 94 mg/dL (35-150)
[2024-03-26 12:00] LABS: Appearance Urine UA CLEAR; Bilirubin Urine UA NEGATIVE (NEGATIVE); Color Urine UA YELLOW; Glucose Urine UA NEGATIVE (Negative); Ketones Urine UA NEGATIVE (NEGATIVE); Leukocyte Esterase Urine UA 3+ (NEGATIVE); Nitrite Urine UA POSITIVE (Negative); Occult Blood Urine UA TRACE-INTACT (Negative); Protein Urine UA NEGATIVE (Negative); Specific Gravity Urine UA <=1.005 (1.000-1.035); Urobilinogen Urine UA 0.2 E.U./dL (0.2)
[2024-03-26 12:01] LABS: pH Urine UA 5.5 (4.5-8.0)
[2024-03-26 12:03] LABS: Bacteria Urine Many (>30); RBC Urine 0-1/HPF (0-5/HPF); Squamous Epithelial Cell Urine 1-5 /HPF (0-5/HPF); Urine Volume 10mL (spun); WBC Urine 10-30/HPF (0-5/HPF)
[2024-03-26 12:04] LABS: Culture Indicated Urine Specimen Cultured
[2024-03-26 12:24] LABS: Creatinine Urine Random 17.4 mg/dL
[2024-03-26 12:30] LABS: Microalbumin Urine Random < 0.6 mg/dL (0-1.6)
== END ==
PROVIDERS: PCP Family Medicine; Referring Provider Family Medicine; Visit Provider Family Medicine
DX: K52.831 Collagenous colitis (principal); R73.9 Hyperglycemia, unspecified; E78.5 Hyperlipidemia, unspecified; I10 Essential (primary) hypertension; R30.0 Dysuria
CPT/HCPCS: 36415; 80053; 80061; 81001; 82043; 82570; 83036; 85025; 86140; 87077; 87086; 87186

== ENCOUNTER → 2024-03-28 11:46 | Outpatient (CLI) | payer OTHER, SELFPAY ==
[2021-11-03 08:29] VITALS: BMI 26.9
[2024-03-28 13:01] LABS: Appearance Urine UA CLOUDY; Bilirubin Urine UA NEGATIVE (NEGATIVE); Color Urine UA YELLOW; Glucose Urine UA NEGATIVE (Negative); Ketones Urine UA NEGATIVE (NEGATIVE); Leukocyte Esterase Urine UA 2+ (NEGATIVE); Nitrite Urine UA POSITIVE (Negative); Occult Blood Urine UA NEGATIVE (Negative); Protein Urine UA NEGATIVE (Negative); Specific Gravity Urine UA 1.015 (1.000-1.035); Urobilinogen Urine UA 0.2 E.U./dL (0.2)
[2024-03-28 13:17] LABS: Urine Volume 10mL (spun)
[2024-03-28 13:18] LABS: Bacteria Urine Many (>30); Culture Indicated Urine Specimen Cultured; RBC Urine None Seen (0-5/HPF); Squamous Epithelial Cell Urine 1-5 /HPF (0-5/HPF); WBC Urine 10-30/HPF (0-5/HPF)
== END ==
PROVIDERS: PCP Family Medicine; Referring Provider Family Medicine; Visit Provider Family Medicine
DX: Z87.898 Personal history of other specified conditions (principal); N39.46 Mixed incontinence
CPT/HCPCS: 81001; 87077; 87086; 87186

== ENCOUNTER → 2024-04-09 11:07 | Outpatient (CLI) | payer OTHER, SELFPAY ==
[2021-11-03 08:29] VITALS: BMI 26.9
[2024-04-09 11:49] LABS: Appearance Urine UA CLOUDY; Bilirubin Urine UA NEGATIVE (NEGATIVE); Color Urine UA YELLOW; Glucose Urine UA NEGATIVE (Negative); Ketones Urine UA NEGATIVE (NEGATIVE); Leukocyte Esterase Urine UA 3+ (NEGATIVE); Nitrite Urine UA POSITIVE (Negative); Occult Blood Urine UA NEGATIVE (Negative); Protein Urine UA NEGATIVE (Negative); Urobilinogen Urine UA 0.2 E.U./dL (0.2)
[2024-04-09 11:51] LABS: Urine Volume 10mL (spun); pH Urine UA 6.5 (4.5-8.0)
[2024-04-09 11:53] LABS: Bacteria Urine Many (>30); Culture Indicated Urine Specimen Cultured; RBC Urine None Seen (0-5/HPF); Squamous Epithelial Cell Urine 1-5 /HPF (0-5/HPF); WBC Urine 10-30/HPF (0-5/HPF)
== END ==
PROVIDERS: PCP Family Medicine; Referring Provider Family Medicine; Visit Provider Family Medicine
DX: N39.46 Mixed incontinence (principal); R15.9 Full incontinence of feces; Z87.898 Personal history of other specified conditions
CPT/HCPCS: 81001; 87077; 87086

== ENCOUNTER → 2024-10-22 10:54 | Outpatient (CLI) | payer OTHER, SELFPAY ==
[2021-11-03 08:29] VITALS: BMI 26.9
[2024-10-22 11:09] LABS: Appearance Urine UA CLOUDY; Bilirubin Urine UA NEGATIVE (NEGATIVE); Color Urine UA YELLOW; Glucose Urine UA NEGATIVE (Negative); Ketones Urine UA NEGATIVE (NEGATIVE); Leukocyte Esterase Urine UA 2+ (NEGATIVE); Nitrite Urine UA POSITIVE (Negative); Occult Blood Urine UA TRACE-INTACT (Negative); Protein Urine UA NEGATIVE (Negative); Urobilinogen Urine UA 0.2 E.U./dL (0.2)
[2024-10-22 11:10] LABS: Urine Volume 10mL (spun)
[2024-10-22 11:13] LABS: Bacteria Urine Many (>30); Culture Indicated Urine Specimen Cultured; RBC Urine None Seen (0-5/HPF); Squamous Epithelial Cell Urine None Seen (0-5/HPF); WBC Urine 30-100/HPF (0-5/HPF)
== END ==
PROVIDERS: PCP Family Medicine; Referring Provider Family Medicine; Visit Provider Family Medicine
DX: R82.998 Other abnormal findings in urine (principal)
CPT/HCPCS: 81001; 87077; 87086; 87186

== ENCOUNTER 2024-11-04 14:06 | Emergency (ER) | payer OTHER, SELFPAY ==
[2021-11-03 08:29] VITALS: BMI 26.9
[2024-11-04 14:06] VITALS: BP 155/82; PULSE 80; RESP 16; TEMP 36.8; O2SAT 97; BMI 26.6
[2024-11-04 14:11] VITALS: BP 155/82; PULSE 81; O2SAT 98
--- NOTE | 2024-11-04 14:15 | ED_ITS ---
HPI - Syncope General Chief Complaint: Syncope Stated Complaint: syncope Time Seen by Provider: 11/04/24 14:07 History of Present Illness HPI narrative: 73-year-old female presents by EMS from [employer] [facility] for syncopal episode. Patient states that she was standing in line waiting to get into the store when she felt like her vision started to tunnel. She was assisted to the ground by her friends who called 911. Patient states this happened 1 week ago, but she did not fully pass out at that time. Patient initially did not want to be transferred, but EMS convince patient to come in for evaluation. Patient is requesting minimal workup be performed due to insurance concerns. Related Data Home Medications Medication Instructions Recorded Confirmed cholecalciferol (vitamin D3) 250 250 mcg PO DAILY 04/05/23 09/01/24 mcg (10,000 unit) capsule melatonin 5 mg capsule 5 mg PO 04/05/23 09/01/24 desonide 0.05 % topical cream 1 applic topical DAILY PRN 11/27/23 09/01/24 magnesium glycinate 400 mg PO DAILY 03/25/24 09/01/24 budesonide 3 mg 9 mg PO DAILY 04/11/24 09/01/24 capsule,delayed,extended release Previous Rx's Medication Instructions Recorded estradiol 0.01% (0.1 mg/gram) 0.25 g vaginal BEDTIME #42.5 grams 11/27/23 vaginal cream meloxicam 7.5 mg tablet 7.5 mg PO .dinner PRN hip pain #90 09/01/24 tabs estradiol 10 mcg vaginal tablet 10 mcg vaginal 2XW #90 tabs 10/09/24 Allergies Allergy/AdvReac Type Severity Reaction Status Date / Time No Known Drug Allergies Allergy Verified 11/04/24 14:20 Patient History Medical History Essential hypertension (07/03/11) Cystitis glandularis Mixed incontinence Shoulder pain Chronic back pain Cervical spine disease Fecal incontinence (~2018) Colon polyps Personal history of colonic polyps Spinal stenosis Eczema Osteopenia Tubular adenoma of colon (07/18/17) Lichen sclerosus et atrophicus (12/23/15) Hyperlipidemia (07/03/11) Former smoker (07/03/11) Surgical History Anesthesia Hx of discectomy (03/2017) Hx of colonoscopy with polypectomy (04/2014) History of tonsillectomy Status post appendectomy History of bilateral salpingo-oophorectomy (BSO) (1967) Status post breast lumpectomy (1989) S/P cervical spinal fusion Family History Father Alcoholic Smoker Heart disease Cancer Hyperlipidemia Mother Alcoholic Osteoporosis CVA (cerebral vascular accident) Heart disease Hyperlipidemia Dementia Brother Leukemia Social History marital status: number of children: 2 household members: none Smoking Status: Former smoker (Quit 1997 ) Tobacco: How many years used: 40 second hand exposure: Yes alcohol intake: current (1 drink per week, little more during holidays ) substance use type: marijuana (edibles ) Type(s) of exercise: walking frequency: 3-4 times per week Smoking Status: Former smoker (Quit 1997 ) tobacco type: cigarettes alcohol intake frequency: holidays/special occasions only Exam Initial Vital Signs Initial Vital Signs: Vital Signs Temperature 98.3 F 11/04/24 14:06 Pulse Rate 80 11/04/24 14:06 Respiratory Rate 16 11/04/24 14:06 Blood Pressure 155/82 H 11/04/24 14:06 Pulse Oximetry 97 11/04/24 14:06 Oxygen Delivery Method Room Air 11/04/24 14:06 Const: Awake, alert, no acute distress, nontoxic appearing Cardiac: regular rate, regular rhythm RESP: unlabored, clear bilaterally, no wheezing Skin: Warm, Dry, intact, no rashes Neuro: AO x3, CN II-XII grossly intact, moves all extremities Course Orders Ordered: ED Orders 11/04/24 14:00 CBC Auto Diff [Complete Blood Count AUTO DIFF] Stat CMP [Comprehensive Metabolic Panel] Stat Trop I [Troponin I] Stat 11/04/24 14:17 EKG-12 Lead Routine Vital Signs Vital signs: Vital Signs - 8 hr 11/04/24 14:06 11/04/24 14:11 11/04/24 14:11 Temperature 98.3 F Pulse Rate 80 81 Respiratory Rate 16 Blood Pressure 155/82 H 155/82 H Pulse Oximetry 97 98 Oxygen Delivery Method Room Air 11/04/24 14:30 11/04/24 14:30 Temperature Pulse Rate 82 Respiratory Rate 22 Blood Pressure 157/74 H Pulse Oximetry 99 Oxygen Delivery Method Room Air MDM - Syncope Differential Diagnosis Differential diagnosis: Likely syncope due to orthostatic hypotension, vasovagal syncope and dehydration Lab Data 11/04/24 14:00 11/04/24 14:00 Labs: Lab Results 11/04/24 Range/Units 14:00 WBC 8.6 (4.5-11.0) X10^3/uL RBC 4.57 (4.0-5.2) X10^6/uL Hgb 13.9 (12.0-16.0) g/dL Hct 41.5 (36-46) % MCV 90.9 (80-100) fL MCH 30.6 (26-34) PG MCHC 33.6 (30-36) % RDW 14.0 (11.6-14.8) % Plt Count 336 (150-400) X10^3/uL Neut % (Auto) 58.5 (50-75) % Lymph % (Auto) 29.5 (25-40) % Independence % (Auto) 7.9 (3-14) % Eos % (Auto) 3.2 (2-4) % Baso % (Auto) 0.9 (0-2) % Neut # (Auto) 5100 (5186-7495) /uL Lymph # (Auto) 2500 (0170-9484) /uL Independence # (Auto) 700 (0-900) /uL Eos # (Auto) 300 (0-450) /uL Baso # (Auto) 100 (0-100) /uL Sodium 137 (137-145) mmol/L Potassium 3.4 (3.4-5.1) mmol/L Chloride 102 (98-107) mmol/L Carbon Dioxide 29 (22-32) mmol/L BUN 27 H (7-17) mg/dL Creatinine 0.97 (0.52-1.04) mg/dL Estimated GFR > 60 (>60) mL/min BUN/Creatinine Ratio 27.8 H (6-22) Glucose 101 (80-110) mg/dL Calcium 9.6 (8.4-10.2) mg/dL Total Bilirubin 0.7 (0.2-1.3) mg/dL AST 25 (14-36) IU/L ALT 26 (<35) IU/L Alkaline Phosphatase 66 (38-126) U/L Troponin I < 0.012 (0.01-0.034) ng/mL Total Protein 7.9 (6.3-8.2) g/dL Albumin 4.2 (3.5-5.0) g/dL Globulin 3.7 (1.7-4.1) g/dL Albumin/Globulin Ratio 1.1 (1.0-2.8) ECG Data Interpretation: Normal sinus rhythm at 76 beats per minute. Normal MA, no ST T wave changes MDM Narrative Medical decision making narrative: Syncopal episode while standing in line. Based on patient's description of symptoms possibly vasovagal in nature. EKG sinus rhythm. Patient requesting minimal workup due to insurance concerns. Patient refused chest x-ray, told nursing staff that she would like her blood tested for E coli. When told that this was a separate test from what was initially ordered the patient stated that she wanted to leave and that she did not think she needed to be here anyway. Discharge Plan Departure Patient Disposition: Home Clinical Impression: Syncope Instructions: DI for Syncope in Adults (Fainting) Activity Restrictions/Additional Instructions: Your EKG was reassuring and the blood work that we have so far is normal. I am unable to check for E coli in your blood without a blood culture, however you do not have symptoms or vitals consistent with a bloodstream infection. Prescriptions: No Action estradiol 10 mcg tablet 10 mcg vaginal 2XW Qty: 90 0RF desonide 0.05 % cream 1 applic topical DAILY PRN Rx Instructions: 1 application daily on external ears and vulva PRN estradiol 0.01 % (0.1 mg/gram) cream 0.25 g VAG BEDTIME Qty: 42.5 3RF Rx Instructions: Apply to affected areas nightly for 2 weeks, then use 3 times a week as needed budesonide 3 mg capsule,delayed,extend.release 9 mg PO DAILY meloxicam 7.5 mg tablet 7.5 mg PO .dinner PRN (Reason: hip pain) Qty: 90 3RF magnesium glycinate 400 mg PO DAILY cholecalciferol (vitamin D3) 250 mcg (10,000 unit) capsule 250 mcg PO DAILY melatonin 5 mg capsule 5 mg PO Referrals: Gail West DO [Primary Care Provider] - Stand Alone Forms: Patient Portal/API/Survey
--- NOTE | 2024-11-04 14:17 | EKG_ITS ---
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
[2024-11-04 14:22] LABS: Add Manual Diff / Slide Review NO; Basophils Absolute Auto 100 /uL (0-100); Basophils Percent Auto 0.9 % (0-2); Eosinophils Absolute Auto 300 /uL (0-450); Eosinophils Percent Auto 3.2 % (2-4); Hematocrit 41.5 % (36-46); Hemoglobin 13.9 g/dL (12.0-16.0); Lymphocytes Absolute Auto 2500 /uL (1100-4500); Lymphocytes Percent Auto 29.5 % (25-40); Mean Corpuscular HGB Conc 33.6 % (30-36); Mean Corpuscular Hemoglobin 30.6 PG (26-34); Mean Corpuscular Volume 90.9 fL (80-100); Monocytes Absolute Auto 700 /uL (0-900); Monocytes Percent Auto 7.9 % (3-14); Neutrophils Absolute Auto 5100 /uL (1500-7000); Neutrophils Percent Auto 58.5 % (50-75); Platelet Count 336 X10^3/uL (150-400); Red Blood Cell Count 4.57 X10^6/uL (4.0-5.2); White Blood Cell Count 8.6 X10^3/uL (4.5-11.0)
[2024-11-04 14:30] VITALS: BP 157/74; PULSE 82; RESP 22; O2SAT 99
[2024-11-04 14:42] LABS: Alanine Aminotransferase 26 IU/L (<35); Albumin 4.2 g/dL (3.5-5.0); Albumin Globulin Ratio 1.1 (1.0-2.8); Alkaline Phosphatase 66 U/L (38-126); Aspartate Aminotransferase 25 IU/L (14-36); BUN Creatinine Ratio 27.8 (6-22); Bilirubin Total 0.7 mg/dL (0.2-1.3); Blood Urea Nitrogen 27 mg/dL (7-17); Calcium 9.6 mg/dL (8.4-10.2); Carbon Dioxide 29 mmol/L (22-32); Chloride 102 mmol/L (98-107); Estimated Glomerular Filt Rate > 60 mL/min (>60); Globulin 3.7 g/dL (1.7-4.1); Glucose 101 mg/dL (80-110); HEMOLYSIS < 15 (0-50); Potassium 3.4 mmol/L (3.4-5.1); Sodium 137 mmol/L (137-145); Total Protein 7.9 g/dL (6.3-8.2)
--- NOTE | 2024-11-04 14:52 | PC.NURSE ---
patient reports that she wants to leave. she states I do not need to be here I will call my doctor and make an appointment. patient declined chest xray. provider aware. patient signed AMA paperwork.
[2024-11-04 14:54] LABS: Troponin I < 0.012 ng/mL (0.01-0.034)
== END 2024-11-04 15:03 | disposition home or self-care (01) ==
PROVIDERS: Emergency Provider Emergency Medicine; PCP Family Medicine
DX: R55 Syncope and collapse (principal)
CPT/HCPCS: 36415; 80053; 84484; 85025; 93005; 93010; 99283; 99284

== ENCOUNTER 2025-09-25 08:25 | Day surgery (SDC) | payer OTHER, SELFPAY ==
[2021-11-03 08:29] VITALS: BMI 26.9
--- NOTE | 2025-09-25 | PATH_ITS ---
[facility] Accession Number: [id number] No. of containers..02 Tissue . 01 Material submitted: . PART A: colon - CECUM BIOPSY PART B: colon - COLON, ASCENDING BIOPSY . 01 Diagnosis: Part A: CECUM BIOPSY: Colonic mucosa with mildly increased intraepithelial lymphocytes and mild thickening of the subepithelial collagen table, suggestive of collagenous colitis. See comment. . Specimen Comments: While not definitive, the histologic features are suggestive of early collagenous colitis. . Part B: COLON, ASCENDING BIOPSY: Colonic mucosa with mildly increased intraepithelial lymphocytes. No active inflammation identified. [facility] 10/08/2025 1356 Local . 01 Electronically signed: . Asher Ahuamda MD, Pathologist NPI- [id number] . 01 Gross description: . . . . Received two formalin-filled containers, both labeled with the patient's name: . A. In a container labeled cecum, the specimen consists of two fragments of clayton, soft tissue which range in size from less than 0.1 cm to 0.4 x 0.3 x 0.3 cm. The specimen is totally submitted in cassette A. . B. In a container labeled ascending colon, the specimen consists of two fragments of clayton, soft tissue which range in size from 0.2 x 0.2 x 0.2 cm to 0.3 x 0.3 x 0.3 cm. All fragments are totally submitted in cassette B. ([id number]) /[facility] 10/08/2025 [facility]6 Local . 01 Pathologist provided ICD-10: K52.89 . 01 CPT . 369969, 287508 Specimen Comment: A courtesy copy of this report has been sent to [phone] Performed at: 01 [facility] [address] [address], [place], [place] [id number] MD Asher Ahumada MD Phone: [phone]
[2025-09-25 08:50] VITALS: BP 131/78; PULSE 85; RESP 16; TEMP 36.5; O2SAT 99
[2025-09-25] MEDS: LACTATED RINGERS 1,000 ML 42 ML IV (09:01)
--- NOTE | 2025-09-25 09:55 | PM.PREOP ---
Pre-operative Note COVID-19 COVID-19 status: Not tested Interval Note History & Physical reviewed/Exam performed by Physician: Yes Changes to H&P: No ASA Class (for procedural sedation): II
[2025-09-25 10:36] VITALS: BP 125/59; PULSE 75; RESP 25; TEMP 36.7; O2SAT 97
--- NOTE | 2025-09-25 10:36 | PM.OP.COLON ---
Operative Date/Time/Diagnoses Date of procedure: 09/25/25 Time of procedure: 10:36 Pre-op diagnosis: Diarrhea Post-op diagnosis: same Procedure & Clinicians Study performed: Colonoscopy Same procedure(s) as scheduled: Yes Surgeon: Theron Marsh Anesthesia Type: MAC +/- Procedure Notes Procedure in detail: Surgeon: Theron Marsh MD Anesthesia: Praneeth Diego MD Procedure: The patient was brought to the endoscopy suite, placed in left lateral decubitus position. The patient was connected to monitoring devices. A time-out was performed. Sedation was administered. Once the patient was adequately sedated, a digital rectal exam was performed and was normal. The scope was then inserted and advanced to the cecum where the appendiceal orifice was identified and photographed. The scope was then slowly withdrawn over greater than 6 minutes. The mucosa was thoroughly inspected. There was some mild cobblestone appearance of the cecum part of the ascending colon although it did not appear to be particularly inflamed. Random biopsies were taken from the cecum mucosa and ascending colon mucosa with cold forceps. The rest of the colon appeared normal. The scope was retroflexed in the rectum. The scope was straightened and removed. The patient was awakened and brought to recovery. Scope withdrawal time: 9 minutes Sedation time: 15 minutes EBL: 3 mL Findings: Mild cobblestone appearance of the ascending colon and cecum without mariah colitis Estimated Blood Loss: 5 Complications: none Post-procedure Disposition: PACU
[2025-09-25 10:40] VITALS: BP 139/65; PULSE 75; RESP 13; O2SAT 98
[2025-09-25 10:45] VITALS: BP 145/63; PULSE 74; RESP 12; O2SAT 98
== END 2025-09-25 10:59 | disposition home or self-care (01) ==
PROVIDERS: PCP Family Medicine; Referring Provider Family Medicine; Visit Provider Surgery
PROC: 0DJD8ZZ Inspection of Lower Intestinal Tract, Via Natural or Artificial Opening Endoscopic (ICD-10-PCS; CPT 45378; principal; 2025-09-25 10:00)
DX: K52.831 Collagenous colitis (principal); R19.7 Diarrhea, unspecified; L29.0 Pruritus ani; Z87.891 Personal history of nicotine dependence; Z86.0101 Personal history of adenomatous and serrated colon polyps
CPT/HCPCS: 45380; J2704; J3010; J7120